=== PATIENT | male | born 1990 | race African-American/Black ===

== ENCOUNTER 2017-10-14 14:59 | Inpatient (IN) | payer OTHER ==
[2017-10-14] MEDS ORDERED: chlorproMAZINE INJ* 25 MG/ML 2 ML (50 MG) ONE ×2 (15:28→15:40)
[2017-10-14] MEDS ORDERED: chlorproMAZINE INJ* 25 MG/ML 2 ML (50 MG) IM ONE ×2 (15:45→16:31)
[2017-10-14 17:15] LABS: ABS Basophils 0 10^3/ul (0-0.2); ABS Eosinophils 0 10^3/ul (0-0.6); ABS Lymphocytes 2.1 10^3/ul (1.0-4.8); ABS Monocytes 0.5 10^3/ul (0-0.8); ABS Neutrophils 3.1 10^3/ul (1.5-7.7); ABS Nucleated RBC 0 10^3/ul; Eosinophil % 0.7 % (0-6); Hematocrit 38 % (42-52); Hemoglobin 13.1 g/dl (14.0-18.0); Lymphocyte % 36.7 % (25-47); Mean Corpuscular HGB Conc 34 g/dl (31-36); Mean Corpuscular Hemoglobin 30 pg (27-31); Mean Corpuscular Volume 87 fL (80-94); Mean Platelet Volume 9 um3 (7.4-10.4); Nucleated Red Blood Cells % 0.1; Platelet Count 206 10^3/ul (150-450); Red Blood Count 4.39 10^6/ul (4.0-5.4); Red Cell Distribution Width 15 % (10.5-15); White Blood Count 5.8 10^3/ul (3.5-10.8)
[2017-10-14 17:30] LABS: EGFR Non-African American 71.3 (>60)
[2017-10-15] MEDS ORDERED: Ibuprofen TAB* 800 MG PO ONE (05:59)
--- NOTE | 2017-10-15 06:57 | ED ---
Jerica Acevedo Abhishek, scribed for Lonnie Holt MD on 10/15/17 at 0656 . Progress - Progress Note Progress Note: The pt was a sign out from Dr. Qureshi, awaiting MHE and pending disposition. - Consult/PCP Time Called: 15:00 Course/Dx - Course Course Of Treatment: Upon recieving MHE, the pt will be admitted to the [facility]. Dx will be mood disorder. - Diagnoses Provider Diagnoses: Mood disorder The documentation as recorded by the Jerica padilla Abhishek accurately reflects the service I personally performed and the decisions made by Yanet joseph Abdul, MD.
[2017-10-15] MEDS ORDERED: Al Hydrox/Mg Hydrox/Simet LIQ* 30 ML UDC PO PRN (10:22)
[2017-10-15] MEDS ORDERED: Acetaminophen TAB* 325 MG PO PRN (10:22)
[2017-10-15] MEDS ORDERED: Haloperidol TAB* 5 MG PO PRN (10:23)
[2017-10-15] MEDS ORDERED: Cyclobenzaprine TAB* 10 MG PO PRN (13:11)
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
[2017-10-16] MEDS: Vitamin THERAPEUTIC TAB PO SCH (08:36)
--- NOTE | 2017-10-16 11:42 | PN ---
Subjective - Subjective Date of Service: 10/16/17 Service Type: 76618 Hosp care 15 min low complexity Subjective: Alberto is smiling broadly with an intense, somewhat frightening affect. He remains paranoid with no insight into why he is hospitalized. "I'm here because I came to a lot of realizations lately." I ask him for an example, to which he responds "That blinking is optional." He minimizes the role of cannabis in his presentation, stating "I found what works for me and for my body." He is suspicious and guarded, laughing to himself. He seems unconcerned by his violent behavior in the ED and similarly nonchalant about the recent warning from [facility] police to stay away from a woman named Malika, who has apparently felt threatened by him. He denies AH or VH. Objective - Appearance Appearance: Well Developed/Nourished Dysmorphic Features: No Hygiene: Normal Grooming: Well Kept - Behavior Psychomotor Activities: Normal Exhibits Abnormal Movement: No - Attitude and Relatedness Attitude and Relatedness: Psychotically Related Eye Contact: Fair - Speech Quality: Unpressured Latencies: Normal Quantity: Appropriate - Mood Patient's Decription of Mood: "Great" - Affect Observed Affect: Expansive Affect Consistent with: Euphoria - Thought Process Patient's Thought Process: Disorganized Thought Content: Yes Paranoid Ideation, No Passive Wish, No Suicidal Planning, No Homicidal Ideation - Sensorium Experiencing Hallucinations: Yes Type of Hallucinations: Auditory: Yes, Command: No - Level of Consciousness Level of Consciousness: Alert Orientation: Yes Intact, Yes Orientated to Time, Yes Orientated to Place, Yes Orientated to Person - Impulse Control Impulse Control: Poor - Insight and Judgement Insight and Judgement: Impaired - Group Participation Particating in Group Activities: No - Medication Management Medication Management Adherence: No Assessment - Assessment Merits Inpatient Hospitalization: For Immediate Safety, For Stabilization Inpatient DSM-V Dx: F29 Clinical Impression: 27 y.o. 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 Plan - Plan Treatment Plan: Name: ALBERTO BRIONES Birthdate: 1990 [id number] The patient remains psychotic with no insight into his impairment. He is unsafe for discharge. We will start a trial of risperidone 1mg PO qhs. Continue to treat in a structured and secured inpatient setting. Continued Medication Management: Start Medication Medications: Current Medications Acetaminophen (Tylenol Tab*) 650 mg PO Q4H PRN PRN Reason: PAIN or TEMP > 101 F Al Hydrox/Mg Hydrox/Simethicone (Maalox Plus*) 30 ml PO Q4H PRN PRN Reason: INDIGESTION Cyclobenzaprine HCl (Flexeril Tab*) 10 mg PO BID PRN PRN Reason: PAIN Diphenhydramine HCl (Benadryl Po*) 50 mg PO Q6H PRN PRN Reason: AGITATION/INSOMNIA Haloperidol (Haldol Tab*) 5 mg PO Q6H PRN PRN Reason: PSYCHOSIS/AGITATION Multivitamins (Theragran Tab*) 1 tab PO DAILY [facility] Last Admin: 10/16/17 08:36 Dose: Not Given Risperidone (Risperdal-M Tab *) 1 mg PO BEDTIME [facility] PRN Reason: Protocol - Discharge Plan Discharge Plan: Inpatient Hospitalization
--- NOTE | 2017-10-16 16:46 | PN ---
[facility]: Group Therapy Note - Service Type Service Type: [id number] Group Psychotherapy - Medication Education Group: Patient attended group and presented with flat affect that did not vary with discussion. Although responsive to direct prompts to respond to questions, patient did not engage in spontaneous conversation.
[2017-10-16] MEDS: risperiDONE-M * 1 MG TAB.ORADIS PO SCH (22:12)
[2017-10-17] MEDS: Vitamin THERAPEUTIC TAB PO SCH (08:19)
--- NOTE | 2017-10-17 12:25 | PN ---
Subjective - Subjective Date of Service: 10/17/17 Service Type: [id number] Hosp care 15 min low complexity Subjective: Alberto continues to display fairly overt symptoms of psychosis. He is looking up at the ceiling, as though seeing something, and smiling broadly to himself and laughing. He remains this way through our interview, laughing inappropriately and making odd statements. "Oh, did you hear that? I heard your shoulder crack." I understand that his mother has come from [facility] and feels he is very much not at his psychiatric baseline, which is asymptomatic. I called his faculty advisor, Dr. Shin Carrillo, and left a message for collateral. The patient makes paranoid statements when asked about his complaints to his sister about being the subject of surveillance prior to admission, saying cryptically "Hey, if they catch me, they catch me." He denies SI or HI. Objective - Appearance Appearance: Well Developed/Nourished Dysmorphic Features: No Hygiene: Normal Grooming: Well Kept - Behavior Psychomotor Activities: Normal Exhibits Abnormal Movement: No - Attitude and Relatedness Attitude and Relatedness: Psychotically Related Eye Contact: Fair - Speech Quality: Pressured Latencies: Short Quantity: Appropriate - Mood Patient's Decription of Mood: "Great" - Affect Observed Affect: Expansive Affect Consistent with: Euphoria - Thought Process Patient's Thought Process: Circumstantial Thought Content: Yes Paranoid Ideation, No Passive Wish, No Suicidal Planning, No Homicidal Ideation - Sensorium Experiencing Hallucinations: Yes Type of Hallucinations: Visual: Yes, Auditory: Yes, Command: No - Level of Consciousness Level of Consciousness: Alert Orientation: Yes Intact, Yes Orientated to Time, Yes Orientated to Place, Yes Orientated to Person - Impulse Control Impulse Control: Poor - Insight and Judgement Insight and Judgement: Impaired - Group Participation Particating in Group Activities: No - Medication Management Medication Management Adherence: No Assessment - Assessment Merits Inpatient Hospitalization: For Immediate Safety, For Stabilization Inpatient DSM-V Dx: F29 Clinical Impression: 27 y.o. 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 Plan - Plan Treatment Plan: Name: ALBERTO BRIONES Birthdate: 1990 [id number] The patient remains psychotic with no insight into his impairment. He is unsafe for discharge. We will start a trial of risperidone 1mg PO qhs. Continue to treat in a structured and secured inpatient setting. Continued Medication Management: Start Medication Medications: Current Medications Acetaminophen (Tylenol Tab*) 650 mg PO Q4H PRN PRN Reason: PAIN or TEMP > 101 F Al Hydrox/Mg Hydrox/Simethicone (Maalox Plus*) 30 ml PO Q4H PRN PRN Reason: INDIGESTION Cyclobenzaprine HCl (Flexeril Tab*) 10 mg PO BID PRN PRN Reason: PAIN Diphenhydramine HCl (Benadryl Po*) 50 mg PO Q6H PRN PRN Reason: AGITATION/INSOMNIA Haloperidol (Haldol Tab*) 5 mg PO Q6H PRN PRN Reason: PSYCHOSIS/AGITATION Multivitamins (Theragran Tab*) 1 tab PO DAILY [facility] Last Admin: 10/17/17 08:19 Dose: Not Given Risperidone (Risperdal-M Tab *) 1 mg PO BEDTIME [facility] PRN Reason: Protocol Last Admin: 10/16/17 22:12 Dose: Not Given - Discharge Plan Discharge Plan: Inpatient Hospitalization
[2017-10-18] MEDS: Vitamin THERAPEUTIC TAB PO SCH (09:02)
[2017-10-18] MEDS: risperiDONE-M * 1 MG TAB.ORADIS PO SCH ×2 (21:08)
[2017-10-19] MEDS: Vitamin THERAPEUTIC TAB PO SCH (08:43)
[2017-10-19] MEDS: risperiDONE-M * 1 MG TAB.ORADIS PO SCH (21:51)
--- NOTE | 2017-10-19 22:40 | PN ---
Subjective - Subjective Date of Service: 10/19/17 Service Type: 08227 Hosp care 15 min low complexity Subjective: Alberto continues to refuse meds and remains disorganized in his thoughts and behaviors. Extremely guarded, aloof, mumbling to self pacing fast and making comments to others. Doesnot believe he need meds and wants to go out to smoking Pot GINO. He thinks Pot is the only thing helps with his body pain and stiffness. Objective - Appearance Appearance: Well Developed/Nourished, Healthy Appearing Dysmorphic Features: No Hygiene: Normal Grooming: Fairly Well Kept - Behavior Psychomotor Activities: Normal Exhibits Abnormal Movement: No - Attitude and Relatedness Attitude and Relatedness: Dismissive Eye Contact: Good - Speech Quality: Unpressured Latencies: Normal Quantity: Appropriate - Mood Patient's Decription of Mood: "Good" - Affect Observed Affect: Tense Affect Consistent with: Dysphoria - Thought Process Patient's Thought Process: Coherent, Disorganized, Tangential Thought Content: No Passive Wish, No Suicidal Planning, No Homicidal Ideation, No Paranoid Ideation - Sensorium Experiencing Hallucinations: No, Sensorium is Clear Type of Hallucinations: Visual: No, Auditory: No, Command: No - Level of Consciousness Level of Consciousness: Alert Orientation: Yes Intact, Yes Orientated to Time, Yes Orientated to Place, Yes Orientated to Person - Impulse Control Impulse Control: Tenuous - Insight and Judgement Insight and Judgement: Impaired - Group Participation Particating in Group Activities: No - Medication Management Medication Management Adherence: No Assessment - Assessment Merits Inpatient Hospitalization: For Immediate Safety, To Initiate Treatment Inpatient DSM-V Dx: F29 Plan - Plan Treatment Plan: Name: ALBERTO BRIONES Birthdate: 1990 [id number] Continued Medication Management: Consider Medication Medications: Current Medications Acetaminophen (Tylenol Tab*) 650 mg PO Q4H PRN PRN Reason: PAIN or TEMP > 101 F Al Hydrox/Mg Hydrox/Simethicone (Maalox Plus*) 30 ml PO Q4H PRN PRN Reason: INDIGESTION Cyclobenzaprine HCl (Flexeril Tab*) 10 mg PO BID PRN PRN Reason: PAIN Diphenhydramine HCl (Benadryl Po*) 50 mg PO Q6H PRN PRN Reason: AGITATION/INSOMNIA Haloperidol (Haldol Tab*) 5 mg PO Q6H PRN PRN Reason: PSYCHOSIS/AGITATION Multivitamins (Theragran Tab*) 1 tab PO DAILY [facility] Last Admin: 10/19/17 08:43 Dose: Not Given Risperidone (Risperdal-M Tab *) 1 mg PO BEDTIME [facility] PRN Reason: Protocol Last Admin: 10/19/17 21:51 Dose: Not Given - Discharge Plan Discharge Plan: Outpatient Follow Up Outpatient Program: [facility]
[2017-10-20] MEDS: Vitamin THERAPEUTIC TAB PO SCH (10:19)
--- NOTE | 2017-10-20 12:23 | PN ---
Subjective - Subjective Date of Service: 10/20/17 Service Type: [id number] Family Medical Psyc Subjective: Alberto is seen for a family meeting attended by his mother, Aleah Cody, and unit SW Ila Robertson. Aleah comments that he seemed somewhat better over the weekend, but not back to baseline. Unfortunately Alberto is minimally cooperative with the process, often shouting over his mother and not allowing her to finish her sentences. She tries to talk about his sensitivities as a child, particularly with the absence of his father, who abandoned the family. "No, we're not here to talk about that. I'm a grown-ass man! This isn't family therapy. 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 I'm smarter than this. I want to get the fuck out of here." The patient storms out of the room. He is pressured with a continued intense, incongruent smile. He continues to decline antipsychotic medication. After the meeting he is observed screaming and punching morales in the milieu. Objective - Appearance Appearance: Well Developed/Nourished Dysmorphic Features: No Hygiene: Normal Grooming: Fairly Well Kept - Behavior Psychomotor Activities: Abnormal-Increased Exhibits Abnormal Movement: No - Attitude and Relatedness Attitude and Relatedness: Psychotically Related Eye Contact: Poor - Speech Quality: Pressured Latencies: Short Quantity: Copious - Mood Patient's Decription of Mood: "Great" - Affect Observed Affect: Labile Affect Consistent with: Euphoria - Thought Process Patient's Thought Process: Tangential Thought Content: Yes Paranoid Ideation, No Passive Wish, No Suicidal Planning, No Homicidal Ideation - Sensorium Experiencing Hallucinations: No, Sensorium is Clear Type of Hallucinations: Visual: No, Auditory: No, Command: No - Level of Consciousness Level of Consciousness: Agitated Orientation: Yes Intact, Yes Orientated to Time, Yes Orientated to Place, Yes Orientated to Person - Impulse Control Impulse Control: Poor - Insight and Judgement Insight and Judgement: Impaired - Group Participation Particating in Group Activities: No - Medication Management Medication Management Adherence: No Assessment - Assessment Merits Inpatient Hospitalization: For Immediate Safety, For Stabilization Inpatient DSM-V Dx: F29 Clinical Impression: 27 y.o. 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 Plan - Plan Treatment Plan: Name: ALBERTO BRIONES Birthdate: 1990 [id number] The patient remains psychotic with no insight into his impairment. He is unsafe for discharge. We will start a trial of risperidone 1mg PO qhs. Continue to treat in a structured and secured inpatient setting. Continued Medication Management: Start Medication Medications: Current Medications Acetaminophen (Tylenol Tab*) 650 mg PO Q4H PRN PRN Reason: PAIN or TEMP > 101 F Al Hydrox/Mg Hydrox/Simethicone (Maalox Plus*) 30 ml PO Q4H PRN PRN Reason: INDIGESTION Cyclobenzaprine HCl (Flexeril Tab*) 10 mg PO BID PRN PRN Reason: PAIN Diphenhydramine HCl (Benadryl Po*) 50 mg PO Q6H PRN PRN Reason: AGITATION/INSOMNIA Haloperidol (Haldol Tab*) 5 mg PO Q6H PRN PRN Reason: PSYCHOSIS/AGITATION Multivitamins (Theragran Tab*) 1 tab PO DAILY [facility] Last Admin: 10/20/17 10:19 Dose: 1 tab Risperidone (Risperdal-M Tab *) 1 mg PO BEDTIME [facility] PRN Reason: Protocol Last Admin: 10/19/17 21:51 Dose: Not Given - Discharge Plan Discharge Plan: Inpatient Hospitalization
[2017-10-20] MEDS: risperiDONE-M * 1 MG TAB.ORADIS PO SCH (23:12)
[2017-10-21] MEDS: Vitamin THERAPEUTIC TAB PO SCH ×2 (09:17→09:18)
--- NOTE | 2017-10-21 11:56 | PN ---
Subjective - Subjective Service Type: 78763 Hosp care 15 min low complexity Subjective: Patient seen by play writer due to Dr Nova's planned absence. Patient continues to assert his desire to be discharged from the hospital. He states "this place isn 't for me" and is concerned about not having a place to hang his towel in the shower. He states he cannot eat the food here and declines offer to meet with a freight conductor. He expresses concern that staff are observing him and wants to "give a good impression" in order to pursue being released. Objective - Appearance Appearance: Well Developed/Nourished Dysmorphic Features: No Hygiene: Normal Grooming: Well Kept - Behavior Psychomotor Activities: Normal Exhibits Abnormal Movement: No - Attitude and Relatedness Attitude and Relatedness: Psychotically Related Eye Contact: Good - intense - Speech Quality: Unpressured Latencies: Normal Quantity: Appropriate - Mood Patient's Decription of Mood: "i want to leave" - Affect Observed Affect: Expansive Affect Consistent with: Euphoria - Thought Process Patient's Thought Process: Disorganized, Tangential, Circumstantial Thought Content: Yes Paranoid Ideation, No Passive Wish, No Suicidal Planning, No Homicidal Ideation - Sensorium Experiencing Hallucinations: No, Sensorium is Clear Type of Hallucinations: Visual: No, Auditory: No, Command: No - Level of Consciousness Level of Consciousness: Alert Orientation: Yes Intact, Yes Orientated to Time, Yes Orientated to Place, Yes Orientated to Person - Impulse Control Impulse Control: Poor - Insight and Judgement Insight and Judgement: Poor - Group Participation Particating in Group Activities: No - Medication Management Medication Management Adherence: Yes Assessment - Assessment Merits Inpatient Hospitalization: For Immediate Safety, For Stabilization, Consolidate Improvements, Pending Safe DC Plan Inpatient DSM-V Dx: F29 Clinical Impression: 27 y.o. 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 Plan - Plan Treatment Plan: Name: PREET BRIONES Birthdate: 1990 [id number] The patient remains psychotic with no insight into his impairment. He is unsafe for discharge. He refused risperidone 1mg PO qhs. Continue to treat in a structured and secured inpatient setting. Continued Medication Management: Start Medication Medications: Current Medications Acetaminophen (Tylenol Tab*) 650 mg PO Q4H PRN PRN Reason: PAIN or TEMP > 101 F Al Hydrox/Mg Hydrox/Simethicone (Maalox Plus*) 30 ml PO Q4H PRN PRN Reason: INDIGESTION Cyclobenzaprine HCl (Flexeril Tab*) 10 mg PO BID PRN PRN Reason: PAIN Diphenhydramine HCl (Benadryl Po*) 50 mg PO Q6H PRN PRN Reason: AGITATION/INSOMNIA Haloperidol (Haldol Tab*) 5 mg PO Q6H PRN PRN Reason: PSYCHOSIS/AGITATION Multivitamins (Theragran Tab*) 1 tab PO DAILY [facility] Last Admin: 10/21/17 09:18 Dose: 1 tab Risperidone (Risperdal-M Tab *) 1 mg PO BEDTIME JENN[facility]ER PRN Reason: Protocol Last Admin: 10/20/17 23:12 Dose: Not Given - Discharge Plan Discharge Plan: Outpatient Follow Up Outpatient Program: Counseling/Psych Services at [employer]
[2017-10-21] MEDS: risperiDONE-M * 1 MG TAB.ORADIS PO SCH (21:00)
[2017-10-22] MEDS: Vitamin THERAPEUTIC TAB PO SCH (09:17)
--- NOTE | 2017-10-22 12:21 | PN ---
Subjective - Subjective Date of Service: 10/22/17 Service Type: 56810 Hosp care 15 min low complexity Subjective: Alberto is seen with PA student Nicol for follow up. He is found under his covers and not participating in groups. He is observed as hyperverbal, distractible from one topic to another, laughing to himself at times, grandiose , hyperverbal and with deficits in sleep (only 4 hours per staff). Staff reports that he is disruptive in groups, often speaking over peers when they are attempting to share. A motivational interviewing approach is taken and he speaks about how cannabis helped with his pain. "Before I took it it would take like 10 hours for me to do 2 hours worth of work." He does admit that pot made him uncomfortable at first and that some people, in fact, can become paranoid and psychotic when taking it. He continues to refuse antipsychotic medications. Objective - Appearance Appearance: Well Developed/Nourished Dysmorphic Features: No Hygiene: Normal Grooming: Fairly Well Kept - Behavior Psychomotor Activities: Abnormal-Increased Exhibits Abnormal Movement: No - Attitude and Relatedness Attitude and Relatedness: Psychotically Related Eye Contact: Fair - Speech Quality: Pressured Latencies: Short Quantity: Copious - Mood Patient's Decription of Mood: "Great" - Affect Observed Affect: Labile Affect Consistent with: Euphoria - Thought Process Patient's Thought Process: Filght of Ideas Thought Content: Yes Paranoid Ideation, No Passive Wish, No Suicidal Planning, No Homicidal Ideation - Sensorium Experiencing Hallucinations: Yes Type of Hallucinations: Visual: No, Auditory: Yes, Command: No - Level of Consciousness Level of Consciousness: Alert Orientation: Yes Intact, Yes Orientated to Time, Yes Orientated to Place, Yes Orientated to Person - Impulse Control Impulse Control: Poor - Insight and Judgement Insight and Judgement: Impaired - Group Participation Particating in Group Activities: No - Medication Management Medication Management Adherence: No Assessment - Assessment Merits Inpatient Hospitalization: For Immediate Safety, For Stabilization Inpatient DSM-V Dx: F29 Clinical Impression: 27 y.o. 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 Plan - Plan Treatment Plan: Name: ALBERTO BRIONES Birthdate: 1990 [id number] The patient remains psychotic with no insight into his impairment. There seem to be symptoms of lea, meaning that his psychosis may be affective in nature, as opposed to substance induced. He remains unsafe for discharge. He is refusing to start a trial of risperidone 1mg PO qhs. I will discuss the possibility of T.O.O. with the Treatment Team tomorrow. Continue to treat in a structured and secured inpatient setting. Continued Medication Management: Start Medication Medications: Current Medications Acetaminophen (Tylenol Tab*) 650 mg PO Q4H PRN PRN Reason: PAIN or TEMP > 101 F Al Hydrox/Mg Hydrox/Simethicone (Maalox Plus*) 30 ml PO Q4H PRN PRN Reason: INDIGESTION Cyclobenzaprine HCl (Flexeril Tab*) 10 mg PO BID PRN PRN Reason: PAIN Diphenhydramine HCl (Benadryl Po*) 50 mg PO Q6H PRN PRN Reason: AGITATION/INSOMNIA Haloperidol (Haldol Tab*) 5 mg PO Q6H PRN PRN Reason: PSYCHOSIS/AGITATION Multivitamins (Theragran Tab*) 1 tab PO DAILY JENNIFER Last Admin: 10/22/17 09:17 Dose: 1 tab Risperidone (Risperdal-M Tab *) 1 mg PO BEDTIME JENNIFER PRN Reason: Protocol Last Admin: 10/21/17 21:00 Dose: Not Given - Discharge Plan Discharge Plan: Inpatient Hospitalization
[2017-10-22] MEDS: risperiDONE-M * 1 MG TAB.ORADIS PO SCH (21:14)
[2017-10-23] MEDS: Vitamin THERAPEUTIC TAB PO SCH (09:12)
--- NOTE | 2017-10-23 14:03 | PN ---
Subjective - Subjective Date of Service: 10/23/17 Service Type: 27338 Hosp care 15 min low complexity Subjective: Alberto is eager to speak with me, looking around the room in a paranoid fashion. "Yo. I found a hair on my plate. And I found one on my bed. Someone else's hair." This seems to have some persecutory significance to him, although he's unable/unwilling to articulate what it means to him. He remains pressured, hyperverbal with intense and expansive as well as irritable affect. He has no insight into his circumstances and denies that he has a mental illness. "When I'm out of here I really want to travel. See the world." He continues to refuse antipsychotic therapy. Objective - Appearance Appearance: Well Developed/Nourished Dysmorphic Features: No Hygiene: Normal Grooming: Fairly Well Kept - Behavior Psychomotor Activities: Abnormal-Increased Exhibits Abnormal Movement: No - Attitude and Relatedness Attitude and Relatedness: Psychotically Related Eye Contact: Fair - Speech Quality: Pressured Latencies: Short Quantity: Copious - Mood Patient's Decription of Mood: "Great" - Affect Observed Affect: Labile Affect Consistent with: Euphoria - Thought Process Patient's Thought Process: Tangential Thought Content: Yes Paranoid Ideation, No Passive Wish, No Suicidal Planning, No Homicidal Ideation - Sensorium Experiencing Hallucinations: No, Sensorium is Clear Type of Hallucinations: Visual: No, Auditory: No, Command: No - Level of Consciousness Level of Consciousness: Alert Orientation: Yes Intact, Yes Orientated to Time, Yes Orientated to Place, Yes Orientated to Person - Impulse Control Impulse Control: Poor - Insight and Judgement Insight and Judgement: Impaired - Group Participation Particating in Group Activities: No - Medication Management Medication Management Adherence: No Assessment - Assessment Merits Inpatient Hospitalization: For Immediate Safety, For Stabilization Inpatient DSM-V Dx: F29 Clinical Impression: 27 y.o. 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 Plan - Plan Treatment Plan: Name: ALBERTO BRIONES Birthdate: 1990 [id number] The patient remains psychotic with no insight into his impairment. There seem to be symptoms of lea, meaning that his psychosis may be affective in nature, as opposed to substance induced. He remains unsafe for discharge. He is refusing to start a trial of risperidone 1mg PO qhs. I will pursue T.O.O. proceedings. Continue to treat in a structured and secured inpatient setting. Continued Medication Management: Start Medication Medications: Current Medications Acetaminophen (Tylenol Tab*) 650 mg PO Q4H PRN PRN Reason: PAIN or TEMP > 101 F Al Hydrox/Mg Hydrox/Simethicone (Maalox Plus*) 30 ml PO Q4H PRN PRN Reason: INDIGESTION Cyclobenzaprine HCl (Flexeril Tab*) 10 mg PO BID PRN PRN Reason: PAIN Diphenhydramine HCl (Benadryl Po*) 50 mg PO Q6H PRN PRN Reason: AGITATION/INSOMNIA Haloperidol (Haldol Tab*) 5 mg PO Q6H PRN PRN Reason: PSYCHOSIS/AGITATION Multivitamins (Theragran Tab*) 1 tab PO DAILY JENNIFER Last Admin: 10/23/17 09:12 Dose: 1 tab Risperidone (Risperdal-M Tab *) 1 mg PO BEDTIME JENNIFER PRN Reason: Protocol Last Admin: 10/22/17 21:14 Dose: Not Given - Discharge Plan Discharge Plan: Inpatient Hospitalization
--- NOTE | 2017-10-23 19:38 | ED ---
Modesto Acevedo Stephanie, scribed for Josh Qureshi MD on 10/14/17 at 1530 . Psychiatric Complaint - HPI Summary HPI Summary: The pt is a 27 y/o M presenting to the ED with c/o paranoia since 14:00 today. The pts sister found him awake but paranoid and confused. Per sister, the pt started using marijuana in July. She reports he recently changed his phD from one faculty to another. - History Of Current Complaint Chief Complaint: EDAltMentalStatus Time Seen by Provider: 10/14/17 15:26 Hx Obtained From: Patient Onset/Duration: Gradual Onset, Still Present Timing: Constant Character: Fearful Aggravating Factor(s): Recent Stress Alleviating Factor(s): Nothing Associated Signs And Symptoms: Positive: Hostile, Confused, Paranoid Behavior - Allergies/Home Medications Allergies/Adverse Reactions: Allergies Allergy/AdvReac Type Severity Reaction Status Date / Time No Known Allergies Allergy Verified 10/15/17 06:51 Home Medications: Home Medications Unobtainable [Unobtainable] 10/14/17 [History Confirmed 10/14/17] PMH/Surg Hx/FS Hx/Imm Hx Sensory History: Denies: Hx Legally Blind EENT History: Denies: Hx Deafness - Surgical History Surgery Procedure, Year, and Place: NONE Infectious Disease History: No Infectious Disease History: Denies: Traveled Outside the [place] in Last 30 Days - Family History Known Family History: Positive: Other - SI ideations - Social History Occupation: Student Lives: Alone Alcohol Use: None Substance Use Type: Reports: Marijuana Substance Use Comment - Amount & Last Used: lg amt of daily marijuana use Smoking Status (MU): Never Smoked Tobacco Review of Systems Negative: Fever Positive: Other - paranoid, confused All Other Systems Reviewed And Are Negative: Yes Physical Exam - Summary Physical Exam Summary: Appearance: Well-appearing, Well-nourished Skin: Warm, Dry, No rash Eyes: Normal, PERRL, EOMI, sclera anicteric ENT: Normal Neck: Supple, nontender Respiratory: Clear to auscultation Cardiovascular: S1, S2, no murmur, no rub, no gallop Abdomen: Soft, nontender, no organomegaly Bowel sounds: Present Musculoskeletal: Normal, Strength/ROM Intact, no edema, pulses symmetrical Neurological: Normal, A&Ox3, cranial nerves II-XII WNL, follows commands, gait not tested, sensation intact to pin and light touch Psychiatric: hostile prior to sedation, currently sedated, arousable, paranoid ideation, speaking to people who are not in the room. Triage Information Reviewed: Yes Vital Signs On Initial Exam: Initial Vitals Temp Pulse Resp BP Pulse Ox 99.1 F 70 18 140/74 100 10/14/17 15:05 10/14/17 15:05 10/14/17 15:05 10/14/17 15:05 10/14/17 15:05 Vital Signs Reviewed: Yes Diagnostics - Vital Signs Vital Signs Temp Pulse Resp BP Pulse Ox 10/14/17 15:05 99.1 F 70 18 140/74 100 - Laboratory Lab Results: Lab Results 10/14/17 10/14/17 Range/Units 17:05 17:05 WBC 5.8 (3.5-10.8) 10^3/ul RBC 4.39 (4.0-5.4) 10^6/ul Hgb 13.1 L (14.0-18.0) g/dl Hct 38 L (42-52) % MCV 87 (80-94) fL MCH 30 (27-31) pg MCHC 34 (31-36) g/dl RDW 15 (10.5-15) % Plt Count 206 (150-450) 10^3/ul MPV 9 (7.4-10.4) um3 Neut % (Auto) 53.4 (38-83) % Lymph % (Auto) 36.7 (25-47) % [place] % (Auto) 8.9 H (0-7) % Eos % (Auto) 0.7 (0-6) % Baso % (Auto) 0.3 (0-2) % Absolute Neuts (auto) 3.1 (1.5-7.7) 10^3/ul Absolute Lymphs (auto) 2.1 (1.0-4.8) 10^3/ul Absolute Monos (auto) 0.5 (0-0.8) 10^3/ul Absolute Eos (auto) 0 (0-0.6) 10^3/ul Absolute Basos (auto) 0 (0-0.2) 10^3/ul Absolute Nucleated RBC 0 10^3/ul Nucleated RBC % 0.1 Sodium 136 (133-145) mmol/L Potassium 3.5 (3.5-5.0) mmol/L Chloride 104 (101-111) mmol/L Carbon Dioxide 26 (22-32) mmol/L Anion Gap 6 (2-11) mmol/L BUN 9 (6-24) mg/dL Creatinine 1.22 H (0.67-1.17) mg/dL Est GFR ( Amer) 91.6 (>60) Est GFR (Non-Af Amer) 71.3 (>60) BUN/Creatinine Ratio 7.4 L (8-20) Glucose 117 H (70-100) mg/dL Calcium 8.9 (8.6-10.3) mg/dL Total Bilirubin 0.50 (0.2-1.0) mg/dL AST 56 H (13-39) U/L ALT 24 (7-52) U/L Alkaline Phosphatase 46 (34-104) U/L Total Protein 6.4 (6.4-8.9) g/dL Albumin 4.1 (3.2-5.2) g/dL Globulin 2.3 (2-4) g/dL Albumin/Globulin Ratio 1.8 (1-3) TSH 0.76 (0.34-5.60) mcIU/mL Serum Alcohol < 10 (<10) mg/dL Result Diagrams: 10/14/17 17:05 10/14/17 17:05 Lab Statement: Any lab studies that have been ordered have been reviewed, and results considered in the medical decision making process. Course/Dx - Course Course Of Treatment: The pt is a sign out to Dr. Holt at shift change pending MHE and drug screen. he remains sedated after receiving 150 mg thorazine, calmer, arousable. awaiting MHE and urine drug screen - Differential Dx/Clinical Impression Differential Diagnosis/HQI/PQRI: Positive: Acute Psychosis - acute psychosis, with paranoid ideation. Provider Diagnosis: Mood disorder, Paranoia Discharge - Discharge Plan Condition: Stable Disposition: OTHER Discharge Disposition Comment: The pt is a sign out to Dr. Holt at shift change. The documentation as recorded by the Modesto padilla Stephanie accurately reflects the service I personally performed and the decisions made by me, Josh Qureshi MD.
[2017-10-23] MEDS: risperiDONE-M * 1 MG TAB.ORADIS PO SCH (22:10)
--- NOTE | 2017-10-24 11:54 | PN ---
[facility]: Group Therapy Note - Service Type Service Type: 24355 Group Psychotherapy - Cognitive Behavioral Group Therapy ( CBT):Patient was attentive and participatory in CBT programming this morning, and remained in good behavioral control. Patient expressed positive insights regarding relevant treatment interventions and goals.
[2017-10-24] MEDS: Vitamin THERAPEUTIC TAB PO SCH (12:13)
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
--- NOTE | 2017-10-24 17:29 | RAD ---
Indication: Altered mental status. Comparison: No relevant prior exams available on the [facility] PACS for comparison. Technique: Noncontrast CT vertex of skull through foramen magnum. Report: The sulci, ventricles, and basal cisterns are normal for age. Wright matter white matter differentiation is preserved without evidence for edema. No intra or extra axial hemorrhage, mass, or fluid collection detected. Unremarkable visualized orbital contents. Unremarkable calvarium and skull base. Unremarkable scalp. Retained secretions with air-fluid levels in the bilateral maxillary sinuses with associated punctate gas bubbles. Clear mastoid air spaces. IMPRESSION: 1. Negative unenhanced CT of the brain. 2. Correlate clinically for potential acute bilateral maxillary sinusitis.
[2017-10-25] MEDS: risperiDONE-M * 1 MG TAB.ORADIS PO SCH ×2 (00:15→21:17)
[2017-10-25] MEDS: Vitamin THERAPEUTIC TAB PO SCH (08:45)
[2017-10-26] MEDS: Vitamin THERAPEUTIC TAB PO SCH ×2 (10:16→10:30)
[2017-10-26] MEDS: risperiDONE-M * 1 MG TAB.ORADIS PO SCH (20:37)
[2017-10-27] MEDS: Vitamin THERAPEUTIC TAB PO SCH (08:19)
--- NOTE | 2017-10-27 13:04 | PN ---
Subjective - Subjective Date of Service: 10/27/17 Service Type: [id number] Family Medical Psyc Subjective: Alberto is seen for family meeting with his mother, Aleah Cody, CHRISTA Robertson and [employer] student Nicol. Alberto is calm and cooperative throughout, although he makes it clear that, in his mind, nothing about his behavior has been abnormal throughout this episode. He declines to indicate whether or not he will resume cannabis usage after hospitalization. Mom indicates that this is Alberto's baseline and she expresses comfort in allowing him to be discharged to outpatient follow up. Alberto expresses a willingness to see a therapist at [facility] after going home. He is uncertain at this time whether he will be pursuing a medical withdrawal from school. Staff notes indicate that Alberto has been calm and under control. He denies SI or HI. Objective - Appearance Appearance: Well Developed/Nourished Dysmorphic Features: No Hygiene: Normal Grooming: Well Kept - Behavior Psychomotor Activities: Normal Exhibits Abnormal Movement: No - Attitude and Relatedness Attitude and Relatedness: Cooperative Eye Contact: Fair - Speech Quality: Unpressured Latencies: Normal Quantity: Appropriate - Mood Patient's Decription of Mood: "Good" - Affect Observed Affect: Expansive Affect Consistent with: Euthymia - Thought Process Patient's Thought Process: Coherent Thought Content: Yes Paranoid Ideation, No Passive Wish, No Suicidal Planning, No Homicidal Ideation - Sensorium Experiencing Hallucinations: No, Sensorium is Clear Type of Hallucinations: Visual: No, Auditory: No, Command: No - Level of Consciousness Level of Consciousness: Alert Orientation: Yes Intact, Yes Orientated to Time, Yes Orientated to Place, Yes Orientated to Person - Impulse Control Impulse Control: Tenuous - Insight and Judgement Insight and Judgement: Fair - Group Participation Particating in Group Activities: Yes - Medication Management Medication Management Adherence: No Assessment - Assessment Merits Inpatient Hospitalization: Consolidate Improvements, Pending Safe DC Plan Inpatient DSM-V Dx: F29 Clinical Impression: 27 y.o. 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 Plan - Plan Treatment Plan: Name: ALBERTO BRIONES Birthdate: 1990 [id number] The patient's paranoia is improving despite his refusal to start a trial of risperidone 1mg PO qhs. His head CT (10/24) was within normal limits. Discontinuation of cannabis appears to have been the most helpful factor in his recovery and we are strongly encouraging him to abstain from that substance. He declines substance abuse treatment. Will target tomorrow, October 28, for discharge to home. Continued Medication Management: Consider Medication Medications: Current Medications Acetaminophen (Tylenol Tab*) 650 mg PO Q4H PRN PRN Reason: PAIN or TEMP > 101 F Al Hydrox/Mg Hydrox/Simethicone (Maalox Plus*) 30 ml PO Q4H PRN PRN Reason: INDIGESTION Cyclobenzaprine HCl (Flexeril Tab*) 10 mg PO BID PRN PRN Reason: PAIN Diphenhydramine HCl (Benadryl Po*) 50 mg PO Q6H PRN PRN Reason: AGITATION/INSOMNIA Haloperidol (Haldol Tab*) 5 mg PO Q6H PRN PRN Reason: PSYCHOSIS/AGITATION Multivitamins (Theragran Tab*) 1 tab PO DAILY [facility] Last Admin: 10/27/17 08:19 Dose: 1 tab Risperidone (Risperdal-M Tab *) 1 mg PO BEDTIME JENNIFER PRN Reason: Protocol Last Admin: 10/26/17 20:37 Dose: Not Given - Discharge Plan Discharge Plan: Outpatient Follow Up Outpatient Program: Counseling/Psych Services at [employer]
[2017-10-27] MEDS: risperiDONE-M * 1 MG TAB.ORADIS PO SCH (22:04)
[2017-10-28 09:12] VITALS: BP 146/81
[2017-10-28] MEDS: Vitamin THERAPEUTIC TAB PO SCH (11:14)
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
== END 2017-10-28 13:15 | disposition home or self-care (01) | DRG 897 ==
LOC: ED 14:59 → BSU 10-15 06:57
PROVIDERS: ADMIT Psychiatry & Neurology Psychiatry; ATTEND Psychiatry & Neurology Psychiatry
PROC: GZHZZZZ Group Psychotherapy (ICD-10-PCS; principal; 2017-10-16)
DX: F12.250 Cannabis dependence with psychotic disorder with delusions (principal); N17.9 Acute kidney failure, unspecified; F22 Delusional disorders; G89.29 Other chronic pain; D64.9 Anemia, unspecified; M54.2 Cervicalgia; R45.1 Restlessness and agitation; M54.9 Dorsalgia, unspecified; Z81.8 Family history of other mental and behavioral disorders; Z78.1 Physical restraint status
CPT/HCPCS: 36415; 70450; 80053; 80320; 84443; 85025; 90847; 90853; 99222; 99231; 99232; 99238; 99284; A9270-GY; G0480

== ENCOUNTER 2017-12-26 15:21 | Inpatient (IN) | payer OTHER ==
[2017-12-26] MEDS ORDERED: Midazolam* 1 MG/ML 2 ML VIAL (2 MG) ONE (15:27)
[2017-12-26] MEDS ORDERED: KETAMINE HCL* 50 MG/ML 10 ML VIAL ONE (15:27)
[2017-12-26] MEDS ORDERED: diPHENhydraMINE IV* 50 MG/ML 1 ml VIAL (BENADRYL) ONE (15:39)
[2017-12-26] MEDS ORDERED: Midazolam* 1 MG/ML 5 ML VIAL (5 MG) SLOW PUSH ONE (15:49)
[2017-12-26] MEDS ORDERED: diPHENhydraMINE IV* 50 MG/ML 1 ml VIAL (BENADRYL) SLOW PUSH ONE (15:49)
[2017-12-26] MEDS ORDERED: Haloperidol INJ IV/IM* 5 MG/ML AMP IV SLOW PU ONE (15:49)
[2017-12-26] MEDS ORDERED: KETAMINE HCL* 50 MG/ML 10 ML VIAL IV ONE (16:03)
[2017-12-26 16:10] LABS: ABS Basophils 0 10^3/ul (0-0.2); ABS Eosinophils 0 10^3/ul (0-0.6); ABS Monocytes 0.6 10^3/ul (0-0.8); ABS Neutrophils 4.9 10^3/ul (1.5-7.7); ABS Nucleated RBC 0 10^3/ul; Eosinophil % 0.4 % (0-6); Hematocrit 40 % (42-52); Hemoglobin 13.9 g/dl (14.0-18.0); Lymphocyte % 26.6 % (25-47); Mean Corpuscular HGB Conc 35 g/dl (31-36); Mean Corpuscular Hemoglobin 30 pg (27-31); Mean Corpuscular Volume 88 fL (80-94); Mean Platelet Volume 8.5 um3 (7.4-10.4); Nucleated Red Blood Cells % 0.1; Platelet Count 205 10^3/ul (150-450); Red Blood Count 4.58 10^6/ul (4.0-5.4); Red Cell Distribution Width 15 % (10.5-15); White Blood Count 7.6 10^3/ul (3.5-10.8)
[2017-12-26 16:37] LABS: EGFR Non-African American 69.3 (>60)
--- NOTE | 2017-12-26 16:38 | RAD ---
INDICATION: Laceration COMPARISON: None TECHNIQUE: AP and lateral views were obtained. FINDINGS: There is no acute fracture. There is soft tissue swelling over the dorsum of the hand. IMPRESSION: NO FRACTURE OR FOREIGN BODY
[2017-12-26] MEDS: Haloperidol TAB* 5 MG PO ONE ×2 (18:18→18:19)
[2017-12-26] MEDS ORDERED: Haloperidol INJ IV/IM* 5 MG/ML AMP IM ONE (18:38)
--- NOTE | 2017-12-26 18:54 | ED ---
Nathan Acevedo Jennifer, scribed for Aric Mota MD on 12/26/17 at 1618 . Psychiatric Complaint - HPI Summary HPI Summary: The patient is a 27 year old male who was brought to the ED 9.45 after a long night of psychotic episodes at home since 2129 last night. Police were at his house at 2300 12/25/2017, but were unable to enter his house to bring him to the ED. The psych epidemiology investigator stayed until 0200 this morning and managed to get the patient to come out of his house. The epidemiology investigator reports the patient had been smoking marijuana, hadnt eaten, punched a window, and experiencing auditory and visual hallucinations as he was fighting an imaginary figure. Patient was additionally very paranoid, thought there were cameras around him, and people were trying to kill him. The patient had been previously hospitalized for 10 days in November. There are abrasions on his right hand after breaking the window. The epidemiology investigator adds that the patient has been refusing to take his Risperdol. - History Of Current Complaint Hx Obtained From: Other: - Psych epidemiology investigator, Police Hx From Patient Unobtainable Due To: Altered Mental Status Onset/Duration: Sudden Onset - Began last night aroung 2129, Lasting Hours, Still Present, Worse Since Timing: Constant Severity Initially: Moderate Severity Currently: Moderate Character: Manic - Psychosis, Fearful Aggravating Factor(s): Drug Use - Marijuana Alleviating Factor(s): Nothing Associated Signs And Symptoms: Positive: Hostile, Hallucinating, Paranoid Behavior, Appetite Change Has Homicidal: Denies: Demonstrates Gesture - Allergies/Home Medications Allergies/Adverse Reactions: Allergies Allergy/AdvReac Type Severity Reaction Status Date / Time No Known Allergies Allergy Verified 10/15/17 06:51 Home Medications: Home Medications NK [No Home Medications Reported] 12/26/17 [History Confirmed 12/26/17] PMH/Surg Hx/FS Hx/Imm Hx Respiratory History: Reports: Hx Asthma - As a child Sensory History: Reports: Hx Contacts or Glasses Denies: Hx Legally Blind, Hx Deafness, Hx Hearing Aid Opthamlomology History: Reports: Hx Contacts or Glasses Denies: Hx Legally Blind Psychiatric History: Reports: Hx Attention Deficit Hyperactivity Disorder, Hx Depression, Hx of Violent Episodes Against Others Denies: Hx Eating Disorder - Surgical History Surgery Procedure, Year, and Place: NONE Infectious Disease History: No Infectious Disease History: Denies: Traveled Outside the [place] in Last 30 Days - Family History Known Family History: Positive: Other - SI ideations - Social History Alcohol Use: None Hx Substance Use: Yes Substance Use Type: Reports: Marijuana Substance Use Comment - Amount & Last Used: lg amt of daily marijuana use Smoking Status (MU): Never Smoked Tobacco Amount Used/How Often: Never used any tobacco Have You Smoked in the Last Year: No Review of Systems Negative: Fever, Chills Negative: Erythema Negative: Sore Throat Negative: Chest Pain Negative: Shortness Of Breath, Cough Negative: Abdominal Pain, Vomiting, Nausea Negative: dysuria, hematuria Negative: Myalgia, Edema Negative: Rash Neurological: Negative - Dizziness Positive: Anxious, Other - SI, paranoid behavior, hallucinations, violent behavior All Other Systems Reviewed And Are Negative: Yes Physical Exam - Summary Physical Exam Summary: Constitutional: Well-developed, Well-nourished, Alert. (-) Distressed Skin: Warm, Dry HENT: Normocephalic; Atraumatic Eyes: Conjunctiva normal Neck: Musculoskeletal ROM normal neck. (-) JVD, (-) Stridor, (-) Tracheal deviation Cardio: Rhythm regular, rate normal, Heart sounds normal; Intact distal pulses; The pedal pulses are 2+ and symmetric. Radial pulses are 2+ and symmetric. (-) Murmur Pulmonary/Chest wall: Effort normal. (-) Respiratory distress, (-) Wheezes, (-) Rales Abd: Soft, (-) Tenderness, (-) Distension, (-) Guarding, (-) Rebound Extremities: 1cm laceration over the proximal phalanx of the right thumb. I explored the area for foreign bodies but did not find any. Also, 3mm laeration of the DIP joint of the index finger. Also no foreign body. Musculoskeletal: (-) Edema Lymph: (-) Cervical adenopathy Neuro: Alert, Oriented x3 Psych: Mood and affect Normal Triage Information Reviewed: Yes Vital Signs On Initial Exam: Initial Vitals Temp Pulse Resp BP Pulse Ox 98 F 69 16 131/92 95 12/26/17 15:50 12/26/17 15:50 12/26/17 15:50 12/26/17 15:50 12/26/17 15:50 Vital Signs Reviewed: Yes Diagnostics - Vital Signs Vital Signs Temp Pulse Resp BP Pulse Ox 12/26/17 15:50 98 F 69 16 131/92 95 - Laboratory Lab Results: Lab Results 12/26/17 Range/Units 16:04 WBC 7.6 (3.5-10.8) 10^3/ul RBC 4.58 (4.0-5.4) 10^6/ul Hgb 13.9 L (14.0-18.0) g/dl Hct 40 L (42-52) % MCV 88 (80-94) fL MCH 30 (27-31) pg MCHC 35 (31-36) g/dl RDW 15 (10.5-15) % Plt Count 205 (150-450) 10^3/ul MPV 8.5 (7.4-10.4) um3 Neut % (Auto) 64.5 (38-83) % Lymph % (Auto) 26.6 (25-47) % [place] % (Auto) 8.0 H (0-7) % Eos % (Auto) 0.4 (0-6) % Baso % (Auto) 0.5 (0-2) % Absolute Neuts (auto) 4.9 (1.5-7.7) 10^3/ul Absolute Lymphs (auto) 2.0 (1.0-4.8) 10^3/ul Absolute Monos (auto) 0.6 (0-0.8) 10^3/ul Absolute Eos (auto) 0 (0-0.6) 10^3/ul Absolute Basos (auto) 0 (0-0.2) 10^3/ul Absolute Nucleated RBC 0 10^3/ul Nucleated RBC % 0.1 Result Diagrams: 12/26/17 16:04 12/26/17 16:04 Lab Statement: Any lab studies that have been ordered have been reviewed, and results considered in the medical decision making process. - Radiology Hand XR Xray Interpretation: No Acute Changes - NO FRACTURE OR FOREIGN BODY. Dr. Mota has reviewed this report. of Radiology Interpretation Completed By: Radiologist Course/Dx - Course Course Of Treatment: The patient is a 27 year old male who was brought to the ED 9.45 after a long night of psychotic episodes at home since 2129 last night. In the ED course the patient was given Benadryl, Haldol, Ketamin, and Versed. Bloodwork and Urinalysis were obtained. Hand XR is negative for foreign bodies. The patient is diagnosed with Finger abrasion and Psychosis. The patient will be signed out to Dr. Maloney pending psych evaluation. - Differential Dx/Clinical Impression Provider Diagnosis: Finger abrasion, Psychosis Discharge - Sign-Out/Discharge Documenting (check all that apply): Sign-Out Patient Signing out patient TO: Freeman Maloney - pending psych evaluation - Discharge Plan Referrals: [facility] [Primary Care Provider] - The documentation as recorded by the Nathan padilla Jennifer accurately reflects the service I personally performed and the decisions made by , Aric Mota MD.
[2017-12-26 22:57] LABS: Urine Appearance Clear; Urine Blood Negative (Negative); Urine Color Yellow; Urine Ketones 2+ (Negative); Urine Protein Negative (Negative); Urine Specific Gravity 1.023 (1.010-1.030); Urine Urobilinogen Negative (Negative)
[2017-12-27] MEDS ORDERED: Acetaminophen TAB* 325 MG PO PRN (01:34)
[2017-12-27] MEDS ORDERED: Al Hydrox/Mg Hydrox/Simet LIQ* 30 ML UDC PO PRN (01:34)
[2017-12-27] MEDS: Vitamin THERAPEUTIC TAB PO SCH (12:05)
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
[2017-12-28] MEDS: Vitamin THERAPEUTIC TAB PO SCH (08:35)
[2017-12-28] MEDS ORDERED: chlorproMAZINE TAB* 50 MG ONE (09:25)
[2017-12-28] MEDS ORDERED: chlorproMAZINE INJ* 25 MG/ML 2 ML (50 MG) ONE (09:26)
[2017-12-28] MEDS ORDERED: chlorproMAZINE TAB* 50 MG PO PRN (09:28)
[2017-12-28] MEDS ORDERED: risperiDONE TAB* 1 MG ONE (14:38)
[2017-12-28] MEDS: risperiDONE TAB* 1 MG PO SCH (15:00)
[2017-12-29] MEDS: risperiDONE TAB* 1 MG PO SCH (09:10)
[2017-12-29] MEDS: Vitamin THERAPEUTIC TAB PO SCH (09:10)
[2017-12-29] MEDS ORDERED: LORazepam TAB(*) 1 MG PO PRN (12:25)
--- NOTE | 2017-12-29 12:31 | PN ---
Subjective - Subjective Date of Service: 12/29/17 Service Type: 59042 Hosp care 25 min moderate complexity Subjective: Alberto is hostile, loud and agitated. He endorses an admission one month ago at [facility] in the [place] and states that he was directly transferred from there to [facility] in [place]. He was discharged on 5mg of daily risperidone and made one follow up appointment at an outpatient clinic in [place] before returning to his apartment in [place]. He is on medical leave from [facility], which, according to him, was just increased from 6 months duration to one full year. He is quite demanding, insisting his mother bring him in special food requests and that he immediately be allowed to use the computer. He is also paranoid, accusing ambulance staff of trying to hang him enroute to the hospital. He is targeting male peers and staff members with posturing and violent threats. He denies the accusations that he has been stalking a female [place] artist and repertoire manager named Malika, insisting that he has made no attempt to contact her. His mother and father are here for visiting hours and are visibly distressed by his behavior. He tells me that he will accept the 5mg risperidone dose if offered. Objective - Appearance Appearance: Well Developed/Nourished Dysmorphic Features: No Hygiene: Normal Grooming: Fairly Well Kept - Behavior Psychomotor Activities: Abnormal-Increased Exhibits Abnormal Movement: No - Attitude and Relatedness Attitude and Relatedness: Hostile Eye Contact: Good - Speech Quality: Pressured Latencies: Short Quantity: Copious - Mood Patient's Decription of Mood: "Terrible" - Affect Observed Affect: Labile Affect Consistent with: Dysphoria - Thought Process Patient's Thought Process: Tangential Thought Content: Yes Homicidal Ideation, Yes Paranoid Ideation, No Passive Wish, No Suicidal Planning - Sensorium Experiencing Hallucinations: Yes Type of Hallucinations: Visual: No, Auditory: Yes, Command: No - Level of Consciousness Level of Consciousness: Agitated Orientation: Yes Intact, Yes Orientated to Time, Yes Orientated to Place, Yes Orientated to Person - Impulse Control Impulse Control: Poor - Insight and Judgement Insight and Judgement: Impaired - Group Participation Particating in Group Activities: No - Medication Management Medication Management Adherence: No Assessment - Assessment Merits Inpatient Hospitalization: For Immediate Safety, For Stabilization Inpatient DSM-V Dx: F31.2 Clinical Impression: 27 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 Plan - Plan Treatment Plan: Name: ALBERTO BRIONES Birthdate: 1990 [id number] We will increase risperidone to 5mg daily. Consider T.O.O. and injectable long acting antipsychotic. Still needs treatment on a locked and secured unit. Continued Medication Management: Start Medication Medications: Current Medications Acetaminophen (Tylenol Tab*) 650 mg PO Q4H PRN PRN Reason: PAIN or TEMP > 101 F Last Admin: 12/27/17 13:50 Dose: 650 mg Al Hydrox/Mg Hydrox/Simethicone (Maalox Plus*) 30 ml PO Q4H PRN PRN Reason: INDIGESTION Chlorpromazine HCl (Thorazine Tab*) 50 mg PO Q6H PRN PRN Reason: AGITATION Multivitamins (Theragran Tab*) 1 tab PO DAILY [facility] Last Admin: 12/29/17 09:10 Dose: 1 tab Risperidone (Risperdal*) 5 mg PO DAILY [facility] - Discharge Plan Discharge Plan: Inpatient Hospitalization Lab Results - Lab Results Lab Results: 12/26/17 12/26/17 22:16 22:16 Urine Color Yellow Urine Appearance Clear Urine pH 5.0 Ur Specific [place] 1.023 Urine Protein Negative Urine Ketones 2+ A Urine Blood Negative Urine Nitrate Negative Urine Bilirubin Negative Urine Urobilinogen Negative Ur Leukocyte Esterase Negative Urine Glucose Negative Urine Opiates Screen None detected Ur Barbiturates Screen None detected Ur Phencyclidine Scrn None detected Ur Amphetamines Screen None detected U Benzodiazepines Scrn Presumptive positive A Urine Cocaine Screen None detected U Cannabinoids Screen Presumptive positive A
[2017-12-30] MEDS: Vitamin THERAPEUTIC TAB PO SCH (08:26)
[2017-12-30] MEDS: risperiDONE TAB* 1 MG PO SCH (08:26)
[2017-12-30] MEDS: chlorproMAZINE TAB* 50 MG PO PRN (08:37)
--- NOTE | 2017-12-30 10:50 | PN ---
Subjective - Subjective Date of Service: 12/30/17 Service Type: 03532 Hosp care 15 min low complexity Subjective: Patient was agitated this morning, picking a fight with a male peer. Only took 1mg of his 5mg scheduled risperidone. Continued to target peer and was given 100mg of prn chlorpromazine and then 30min seclusion in his room. Thereafter he was observed purposefully bumping into the same peer in the hallway, blaming the peer and threatening him again. On exam Alberto tells me that President Lavon and Psychologist Experimental Jose Albarado are personally involved in his involuntary admission here at [facility] because "I notice my Twitter posts beat their' s everyday." He admits to me that he only took oral risperidone at [facility] in order to be discharged from the hospital. For collateral information I called his sister, Crystal Briones, who reported the family called 911 on him in November in the [place], [place] because of his paranoid behavior and he spent approximately 4 days in the ED at [facility] before getting an inpatient psychiatric bed at [facility]'s [place], [place] facility. There he spent approximately 2 weeks and took risperidone 5mg daily under threat that the inpatient unit would pursue treatment over his objection. She notes that he immediately self-discontinued medications after discharge and only made one outpatient follow up appointment at [address] [place] [address]. Thereafter he abruptly left the area to return to [place]. Objective - Appearance Appearance: Well Developed/Nourished Dysmorphic Features: No Hygiene: Normal Grooming: Fairly Well Kept - Behavior Psychomotor Activities: Abnormal-Increased Exhibits Abnormal Movement: No - Attitude and Relatedness Attitude and Relatedness: Psychotically Related Eye Contact: Good - Speech Quality: Pressured Latencies: Short Quantity: Copious - Mood Patient's Decription of Mood: "Great" - Affect Observed Affect: Labile Affect Consistent with: Dysphoria - Thought Process Patient's Thought Process: Tangential Thought Content: Yes Homicidal Ideation, Yes Paranoid Ideation, No Passive Wish, No Suicidal Planning - Sensorium Experiencing Hallucinations: No, Sensorium is Clear Type of Hallucinations: Visual: No, Auditory: No, Command: No - Level of Consciousness Level of Consciousness: Alert Orientation: Yes Intact, Yes Orientated to Time, Yes Orientated to Place, Yes Orientated to Person - Impulse Control Impulse Control: Poor - Insight and Judgement Insight and Judgement: Impaired - Group Participation Particating in Group Activities: No - Medication Management Medication Management Adherence: No Assessment - Assessment Merits Inpatient Hospitalization: For Immediate Safety, For Stabilization Inpatient DSM-V Dx: F31.2 Clinical Impression: 27 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 Plan - Plan Treatment Plan: Name: ALBERTO BRIONES Birthdate: 1990 [id number] We will continue risperidone to 5mg daily and encourage adherence. The patient is refusing SWAIN antipsychotic initiation and we will pursue a court order for T.O.O. for this. Will also pursue State Hospitalization. Still needs treatment on a locked and secured unit. Continued Medication Management: Start Medication Medications: Current Medications Acetaminophen (Tylenol Tab*) 650 mg PO Q4H PRN PRN Reason: PAIN or TEMP > 101 F Last Admin: 12/27/17 13:50 Dose: 650 mg Al Hydrox/Mg Hydrox/Simethicone (Maalox Plus*) 30 ml PO Q4H PRN PRN Reason: INDIGESTION Chlorpromazine HCl (Thorazine Tab*) 100 mg PO Q6H PRN PRN Reason: AGITATION Last Admin: 12/30/17 08:37 Dose: 100 mg Lorazepam (Ativan Tab(*)) 2 mg PO Q6H PRN PRN Reason: ANXIETY Multivitamins (Theragran Tab*) 1 tab PO DAILY [facility] Last Admin: 12/30/17 08:26 Dose: 1 tab Risperidone (Risperdal*) 5 mg PO DAILY [facility] Last Admin: 12/30/17 08:26 Dose: 1 mg - Discharge Plan Discharge Plan: Consider Longer Term Tx
--- NOTE | 2017-12-30 12:03 | PN ---
[facility]: Group Therapy Note - Service Type Service Type: 29153 Group Psychotherapy - Cognitive Behavioral Psychotherapy Group : Alberto was witnessed by staff intentionally bumping his shoulder into a peer and making an aggressive comment. He otherwise remained seated in group after that incident, and remained in good behavioral control. He refrained from making further comments, and seemed to attend well to discussion.
[2017-12-31] MEDS: Vitamin THERAPEUTIC TAB PO SCH (09:58)
[2017-12-31] MEDS: risperiDONE TAB* 1 MG PO SCH (09:59)
[2017-12-31] MEDS ORDERED: risperiDONE TAB* 2 MG ONE (10:45)
[2017-12-31] MEDS ORDERED: risperiDONE TAB* 2 MG PO ONE (11:30)
--- NOTE | 2017-12-31 11:36 | PN ---
Subjective - Subjective Date of Service: 12/31/17 Service Type: 27837 Hosp care 15 min low complexity Subjective: Alberto remains paranoid and mostly seclusive. He only slept one hour last night and staff reports indicate that he was in the quiet room for several hours "dancing wildly." This morning he only accepted 1mg of his scheduled 5mg of daily risperidone, stating "I don't need it. I shouldn't be here." Later, when I meet with him as he paces in the hallway he agrees to take the remaining dose "But only to get out of here." He remains threatening towards peers and accuses them of meaning to harm him. He denies SI. Objective - Appearance Appearance: Well Developed/Nourished Dysmorphic Features: No Hygiene: Normal Grooming: Fairly Well Kept - Behavior Psychomotor Activities: Abnormal-Increased Exhibits Abnormal Movement: No - Attitude and Relatedness Attitude and Relatedness: Psychotically Related Eye Contact: Fair - Speech Quality: Pressured Latencies: Short Quantity: Copious - Mood Patient's Decription of Mood: "Upset" - Affect Observed Affect: Labile Affect Consistent with: Dysphoria - Thought Process Patient's Thought Process: Tangential Thought Content: Yes Homicidal Ideation, Yes Paranoid Ideation, No Passive Wish, No Suicidal Planning - Sensorium Experiencing Hallucinations: No, Sensorium is Clear Type of Hallucinations: Visual: No, Auditory: No, Command: No - Level of Consciousness Level of Consciousness: Agitated Orientation: Yes Intact, Yes Orientated to Time, Yes Orientated to Place, Yes Orientated to Person - Impulse Control Impulse Control: Poor - Insight and Judgement Insight and Judgement: Impaired - Group Participation Particating in Group Activities: No - Medication Management Medication Management Adherence: No Assessment - Assessment Merits Inpatient Hospitalization: For Immediate Safety, For Stabilization Inpatient DSM-V Dx: F31.2 Clinical Impression: 27 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 Plan - Plan Treatment Plan: Name: ALBERTO BRIONES Birthdate: 1990 [id number] We will continue risperidone to 5mg daily and encourage adherence. The patient is refusing SWAIN antipsychotic initiation and we will pursue a court order for T.O.O. for this. Will also pursue State Hospitalization. Still needs treatment on a locked and secured unit. Continued Medication Management: Continue Outpt Medication Medications: Current Medications Acetaminophen (Tylenol Tab*) 650 mg PO Q4H PRN PRN Reason: PAIN or TEMP > 101 F Last Admin: 12/27/17 13:50 Dose: 650 mg Al Hydrox/Mg Hydrox/Simethicone (Maalox Plus*) 30 ml PO Q4H PRN PRN Reason: INDIGESTION Chlorpromazine HCl (Thorazine Tab*) 100 mg PO Q6H PRN PRN Reason: AGITATION Last Admin: 12/30/17 08:37 Dose: 100 mg Lorazepam (Ativan Tab(*)) 2 mg PO Q6H PRN PRN Reason: ANXIETY Multivitamins (Theragran Tab*) 1 tab PO DAILY [facility] Last Admin: 12/31/17 09:58 Dose: 1 tab Risperidone (Risperdal*) 5 mg PO DAILY [facility] Last Admin: 12/31/17 09:59 Dose: 1 mg Risperidone (Risperdal*) 4 mg PO ONCE ONE Stop: 12/31/17 11:31 - Discharge Plan Discharge Plan: Consider Longer Term Tx
[2018-01-01] MEDS: risperiDONE TAB* 3 MG PO SCH (11:27)
[2018-01-01] MEDS: risperiDONE TAB* 2 MG PO SCH (11:27)
[2018-01-01] MEDS: Vitamin THERAPEUTIC TAB PO SCH (11:27)
--- NOTE | 2018-01-01 11:53 | PN ---
Subjective - Subjective Date of Service: 01/01/18 Service Type: 40273 Hosp care 15 min low complexity Subjective: Alberto is once again agitated, stalking the unit and targeting select male peers with threats of violence. He presents as delusional, telling me that the other patients on the unit "are not who they appear to be." "I see it in the way that they talk or the facial expressions they make. It's all about race. I don't want to play this game with you Dr. Nova. I'm not crazy. I don't need to be here." He refused AM meds again this morning and only approaches the med window when accompanied by this clinician, stating "I'll take the medicine, but only to get out of here." When the subject of State Hospitalization is broached, he responds "I won't go. It's just like that. I won't go." Objective - Appearance Appearance: Well Developed/Nourished Dysmorphic Features: No Hygiene: Normal Grooming: Disheveled - Behavior Psychomotor Activities: Normal Exhibits Abnormal Movement: No - Attitude and Relatedness Attitude and Relatedness: Psychotically Related Eye Contact: Fair - Speech Quality: Pressured Latencies: Short Quantity: Copious - Mood Patient's Decription of Mood: "Angry" - Affect Observed Affect: Labile Affect Consistent with: Dysphoria - Thought Process Patient's Thought Process: Tangential Thought Content: Yes Homicidal Ideation, Yes Paranoid Ideation, No Passive Wish, No Suicidal Planning - Sensorium Experiencing Hallucinations: No, Sensorium is Clear Type of Hallucinations: Visual: No, Auditory: No, Command: No - Level of Consciousness Level of Consciousness: Agitated Orientation: Yes Intact, Yes Orientated to Time, Yes Orientated to Place, Yes Orientated to Person - Impulse Control Impulse Control: Poor - Insight and Judgement Insight and Judgement: Impaired - Group Participation Particating in Group Activities: No - Medication Management Medication Management Adherence: Partial Assessment - Assessment Merits Inpatient Hospitalization: For Immediate Safety, For Stabilization Inpatient DSM-V Dx: F31.2 Clinical Impression: 27 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 Plan - Plan Treatment Plan: Name: ALBERTO BRIONES Birthdate: 1990 [id number] We will continue risperidone to 5mg daily and encourage adherence. The patient is refusing SWAIN antipsychotic initiation and we will pursue a court order for T.O.O. for this. Will also pursue State Hospitalization. Still needs treatment on a locked and secured unit. Continued Medication Management: Continue Outpt Medication Medications: Current Medications Acetaminophen (Tylenol Tab*) 650 mg PO Q4H PRN PRN Reason: PAIN or TEMP > 101 F Last Admin: 12/27/17 13:50 Dose: 650 mg Al Hydrox/Mg Hydrox/Simethicone (Maalox Plus*) 30 ml PO Q4H PRN PRN Reason: INDIGESTION Chlorpromazine HCl (Thorazine Tab*) 100 mg PO Q6H PRN PRN Reason: AGITATION Last Admin: 12/30/17 08:37 Dose: 100 mg Lorazepam (Ativan Tab(*)) 2 mg PO Q6H PRN PRN Reason: ANXIETY Multivitamins (Theragran Tab*) 1 tab PO DAILY [facility] Last Admin: 01/01/18 11:27 Dose: 1 tab Risperidone (Risperdal*) 2 mg PO DAILY [facility] Last Admin: 01/01/18 11:27 Dose: 2 mg Risperidone (Risperdal*) 3 mg PO DAILY [facility] Last Admin: 01/01/18 11:27 Dose: 3 mg - Discharge Plan Discharge Plan: Consider Longer Term Tx
[2018-01-01] MEDS: chlorproMAZINE TAB* 50 MG PO PRN (13:16)
[2018-01-01] MEDS ORDERED: diPHENhydraMINE PO* 50 MG ONE (13:59)
[2018-01-01] MEDS ORDERED: Haloperidol TAB* 5 MG ONE (13:59)
[2018-01-01] MEDS ORDERED: LORazepam TAB(*) 1 MG ONE (13:59)
[2018-01-01] MEDS ORDERED: Haloperidol INJ IV/IM* 5 MG/ML AMP ONE (14:07)
[2018-01-01] MEDS ORDERED: diPHENhydraMINE IV* 50 MG/ML 1 ml VIAL (BENADRYL) ONE (14:07)
[2018-01-01] MEDS ORDERED: LORazepam INJ* 2 MG/ML 1 ML VIAL ONE (14:07)
[2018-01-02] MEDS: risperiDONE TAB* 3 MG PO SCH (08:52)
[2018-01-02] MEDS: Vitamin THERAPEUTIC TAB PO SCH (08:52)
[2018-01-02] MEDS: risperiDONE TAB* 2 MG PO SCH (08:52)
--- NOTE | 2018-01-02 12:47 | PN ---
Subjective - Subjective Date of Service: 01/02/18 Service Type: 46523 Hosp care 15 min low complexity Subjective: Alberto received multiple doses of prn antipsychotic yesterday, as he was quite agitated and threatening. Thereafter, he slept throughout the night and continues to sleep this morning. This was the first day he took the full scheduled dose of risperidone without significant redirection from staff. He voices no complaints but remains convinced that he is the victim of a conspiracy to put him in the hospital against his will. Objective - Appearance Appearance: Well Developed/Nourished Dysmorphic Features: No Hygiene: Normal Grooming: Disheveled - Behavior Psychomotor Activities: Normal Exhibits Abnormal Movement: No - Attitude and Relatedness Attitude and Relatedness: Psychotically Related Eye Contact: Poor - Speech Quality: Unpressured Latencies: Long Quantity: Terse - Mood Patient's Decription of Mood: "Fine" - Affect Observed Affect: Tense Affect Consistent with: Dysphoria - Thought Process Patient's Thought Process: Tangential Thought Content: Yes Paranoid Ideation, No Passive Wish, No Suicidal Planning, No Homicidal Ideation - Sensorium Experiencing Hallucinations: No, Sensorium is Clear Type of Hallucinations: Visual: No, Auditory: No, Command: No - Level of Consciousness Level of Consciousness: Alert Orientation: Yes Intact, Yes Orientated to Time, Yes Orientated to Place, Yes Orientated to Person - Impulse Control Impulse Control: Poor - Insight and Judgement Insight and Judgement: Impaired - Group Participation Particating in Group Activities: No - Medication Management Medication Management Adherence: Yes Assessment - Assessment Merits Inpatient Hospitalization: For Immediate Safety, For Stabilization Inpatient DSM-V Dx: F31.2 Clinical Impression: 27 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 Plan - Plan Treatment Plan: Name: ALBERTO BRIONES Birthdate: 1990 [id number] We will continue risperidone to 5mg daily and encourage adherence. The patient is refusing SWAIN antipsychotic initiation and we will pursue a court order for T.O.O. for this. Will also pursue State Hospitalization. Still needs treatment on a locked and secured unit. Continued Medication Management: Continue Outpt Medication Medications: Current Medications Acetaminophen (Tylenol Tab*) 650 mg PO Q4H PRN PRN Reason: PAIN or TEMP > 101 F Last Admin: 12/27/17 13:50 Dose: 650 mg Al Hydrox/Mg Hydrox/Simethicone (Maalox Plus*) 30 ml PO Q4H PRN PRN Reason: INDIGESTION Chlorpromazine HCl (Thorazine Tab*) 100 mg PO Q6H PRN PRN Reason: AGITATION Last Admin: 01/01/18 13:16 Dose: 100 mg Lorazepam (Ativan Tab(*)) 2 mg PO Q6H PRN PRN Reason: ANXIETY Multivitamins (Theragran Tab*) 1 tab PO DAILY [facility] Last Admin: 01/02/18 08:52 Dose: 1 tab Risperidone (Risperdal*) 2 mg PO DAILY [facility] Last Admin: 01/02/18 08:52 Dose: 2 mg Risperidone (Risperdal*) 3 mg PO DAILY [facility] Last Admin: 01/02/18 08:52 Dose: 3 mg - Discharge Plan Discharge Plan: Consider Longer Term Tx
[2018-01-03] MEDS: risperiDONE TAB* 2 MG PO SCH (08:37)
[2018-01-03] MEDS: risperiDONE TAB* 3 MG PO SCH (08:37)
[2018-01-03] MEDS: Vitamin THERAPEUTIC TAB PO SCH (08:37)
[2018-01-04] MEDS: Vitamin THERAPEUTIC TAB PO SCH (09:02)
[2018-01-04] MEDS: risperiDONE TAB* 2 MG PO SCH (09:03)
[2018-01-04] MEDS: risperiDONE TAB* 3 MG PO SCH (09:03)
[2018-01-05] MEDS: risperiDONE TAB* 2 MG PO SCH (08:25)
[2018-01-05] MEDS: risperiDONE TAB* 3 MG PO SCH (08:25)
[2018-01-05] MEDS: Vitamin THERAPEUTIC TAB PO SCH (08:25)
--- NOTE | 2018-01-05 15:32 | PN ---
Subjective - Subjective Date of Service: 01/05/18 Service Type: [id number] Hosp care 15 min low complexity Subjective: Alberto was in the dayroom sitting by himself. Tool a long shower. Reports that he is anxious about tomorrows court and the outcome. Petal very bad yesterday and wanted to give up meaning suicide but has not been thinking about suicide since. Missed lunch today and Nursing will offer him something to eat. Objective - Appearance Appearance: Well Developed/Nourished, Healthy Appearing Dysmorphic Features: No Hygiene: Normal Grooming: Well Kept - Behavior Psychomotor Activities: Normal Exhibits Abnormal Movement: No - Attitude and Relatedness Attitude and Relatedness: Appropriate Eye Contact: Fair - Speech Quality: Unpressured Latencies: Normal Quantity: Appropriate - Mood Patient's Decription of Mood: "Anxious" - Affect Observed Affect: Depressed Affect Consistent with: Dysphoria - Thought Process Patient's Thought Process: Coherent, Goal Directed Thought Content: No Passive Wish, No Suicidal Planning, No Homicidal Ideation, No Paranoid Ideation - Sensorium Experiencing Hallucinations: No, Sensorium is Clear Type of Hallucinations: Visual: No, Auditory: No, Command: No - Level of Consciousness Level of Consciousness: Alert Orientation: Yes Intact, Yes Orientated to Time, Yes Orientated to Place, Yes Orientated to Person - Impulse Control Impulse Control: Tenuous - Insight and Judgement Insight and Judgement: Poor - Group Participation Particating in Group Activities: No - Medication Management Medication Management Adherence: Yes Assessment - Assessment Merits Inpatient Hospitalization: For Immediate Safety, For Stabilization Inpatient DSM-V Dx: F31.2 Clinical Impression: Still symptomatic and patially compliant with meds. Not attending unit groups. Plan - Plan Treatment Plan: Name: ALBERTO BRIONES Birthdate: 1990 [id number] Continued Medication Management: Continue Outpt Medication Medications: Current Medications Acetaminophen (Tylenol Tab*) 650 mg PO Q4H PRN PRN Reason: PAIN or TEMP > 101 F Last Admin: 12/27/17 13:50 Dose: 650 mg Al Hydrox/Mg Hydrox/Simethicone (Maalox Plus*) 30 ml PO Q4H PRN PRN Reason: INDIGESTION Chlorpromazine HCl (Thorazine Tab*) 100 mg PO Q6H PRN PRN Reason: AGITATION Last Admin: 01/01/18 13:16 Dose: 100 mg Lorazepam (Ativan Tab(*)) 2 mg PO Q6H PRN PRN Reason: ANXIETY Multivitamins (Theragran Tab*) 1 tab PO DAILY [facility] Last Admin: 01/05/18 08:25 Dose: 1 tab Risperidone (Risperdal*) 2 mg PO DAILY [facility] Last Admin: 01/05/18 08:25 Dose: 2 mg Risperidone (Risperdal*) 3 mg PO DAILY [facility] Last Admin: 01/05/18 08:25 Dose: 3 mg - Discharge Plan Discharge Plan: Outpatient Follow Up Outpatient Program: [facility]
[2018-01-06] MEDS: Vitamin THERAPEUTIC TAB PO SCH (08:49)
[2018-01-06] MEDS: risperiDONE TAB* 2 MG PO SCH (08:49)
[2018-01-06] MEDS: risperiDONE TAB* 3 MG PO SCH (08:49)
--- NOTE | 2018-01-06 16:25 | PN ---
Subjective - Subjective Date of Service: 01/06/18 Service Type: [id number] Hosp care 25 min moderate complexity Subjective: Alberto is seen three times today. First for routine follow up, then for his scheduled court hearing for treatment over his objection, and lastly, for an administrative hearing to facilitate transfer to the [facility]. Alberto is much less paranoid and agitated. He is able to admit that he was targeting a male peer last week on the unit. He remains uninsightful about his condition, however, and is still refusing indicated SWAIN antipsychotic therapy. He ultimately agrees to drop his objection to transfer to [facility]. Objective - Appearance Appearance: Well Developed/Nourished Dysmorphic Features: No Hygiene: Normal Grooming: Fairly Well Kept - Behavior Psychomotor Activities: Normal Exhibits Abnormal Movement: No - Attitude and Relatedness Attitude and Relatedness: Cooperative Eye Contact: Fair - Speech Quality: Unpressured Latencies: Normal Quantity: Appropriate - Mood Patient's Decription of Mood: "Fine" - Affect Observed Affect: Tense Affect Consistent with: Dysphoria - Thought Process Patient's Thought Process: Circumstantial Thought Content: No Passive Wish, No Suicidal Planning, No Homicidal Ideation, No Paranoid Ideation - Sensorium Experiencing Hallucinations: No, Sensorium is Clear Type of Hallucinations: Visual: No, Auditory: No, Command: No - Level of Consciousness Level of Consciousness: Alert Orientation: Yes Intact, Yes Orientated to Time, Yes Orientated to Place, Yes Orientated to Person - Impulse Control Impulse Control: Poor - Insight and Judgement Insight and Judgement: Impaired - Group Participation Particating in Group Activities: No - Medication Management Medication Management Adherence: Partial Assessment - Assessment Merits Inpatient Hospitalization: For Immediate Safety, For Stabilization Inpatient DSM-V Dx: F31.2 Clinical Impression: 27 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 Plan - Plan Treatment Plan: Name: ALBERTO BRIONES Birthdate: 1990 [id number] As per the judge's clerk's order, we will discontinue risperidone and start a trial of paliperidone Sustenna 234mg IM q4wks (start tomorrow AM). Will pursue State Hospitalization. Still needs treatment on a locked and secured unit. Continued Medication Management: Start Medication Medications: Current Medications Acetaminophen (Tylenol Tab*) 650 mg PO Q4H PRN PRN Reason: PAIN or TEMP > 101 F Last Admin: 12/27/17 13:50 Dose: 650 mg Al Hydrox/Mg Hydrox/Simethicone (Maalox Plus*) 30 ml PO Q4H PRN PRN Reason: INDIGESTION Chlorpromazine HCl (Thorazine Tab*) 100 mg PO Q6H PRN PRN Reason: AGITATION Last Admin: 01/01/18 13:16 Dose: 100 mg Lorazepam (Ativan Tab(*)) 2 mg PO Q6H PRN PRN Reason: ANXIETY Multivitamins (Theragran Tab*) 1 tab PO DAILY [facility] Last Admin: 01/06/18 08:49 Dose: 1 tab - Discharge Plan Discharge Plan: Consider Longer Term Tx
[2018-01-07] MEDS ORDERED: Paliperidone SUSTENNA* 234 MG/1.5 ML IM ONE (09:00)
[2018-01-07] MEDS: Vitamin THERAPEUTIC TAB PO SCH (10:29)
--- NOTE | 2018-01-07 12:03 | PN ---
Subjective - Subjective Date of Service: 01/07/18 Service Type: 39418 Hosp care 15 min low complexity Subjective: Patient calm and cooperative. Willing to take the IM shot and go to [facility]. Insight remains impaired. Still not accepting that he has mental illness. "I think it's physical." He denies SI or HI. Objective - Appearance Appearance: Well Developed/Nourished Dysmorphic Features: No Hygiene: Normal Grooming: Fairly Well Kept - Behavior Psychomotor Activities: Normal Exhibits Abnormal Movement: No - Attitude and Relatedness Attitude and Relatedness: Cooperative Eye Contact: Fair - Speech Quality: Unpressured Latencies: Normal Quantity: Appropriate - Mood Patient's Decription of Mood: "Fine" - Affect Observed Affect: Fair Affect Consistent with: Euthymia - Thought Process Patient's Thought Process: Coherent Thought Content: No Passive Wish, No Suicidal Planning, No Homicidal Ideation, No Paranoid Ideation - Sensorium Experiencing Hallucinations: No, Sensorium is Clear Type of Hallucinations: Visual: No, Auditory: No, Command: No - Level of Consciousness Level of Consciousness: Alert Orientation: Yes Intact, Yes Orientated to Time, Yes Orientated to Place, Yes Orientated to Person - Impulse Control Impulse Control: Poor - Insight and Judgement Insight and Judgement: Impaired - Group Participation Particating in Group Activities: No - Medication Management Medication Management Adherence: Yes Assessment - Assessment Merits Inpatient Hospitalization: For Immediate Safety, For Stabilization Inpatient DSM-V Dx: F31.2 Clinical Impression: 27 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 Plan - Plan Treatment Plan: Name: PREET BRIONES Birthdate: 1990 [id number] As per the lactation nurse's order, we will discontinue risperidone and start a trial of paliperidone Sustenna 234mg IM q4wks (start tomorrow AM). Will pursue State Hospitalization. Still needs treatment on a locked and secured unit. Continued Medication Management: Start Medication Medications: Current Medications Acetaminophen (Tylenol Tab*) 650 mg PO Q4H PRN PRN Reason: PAIN or TEMP > 101 F Last Admin: 12/27/17 13:50 Dose: 650 mg Al Hydrox/Mg Hydrox/Simethicone (Maalox Plus*) 30 ml PO Q4H PRN PRN Reason: INDIGESTION Chlorpromazine HCl (Thorazine Tab*) 100 mg PO Q6H PRN PRN Reason: AGITATION Last Admin: 01/01/18 13:16 Dose: 100 mg Lorazepam (Ativan Tab(*)) 2 mg PO Q6H PRN PRN Reason: ANXIETY Multivitamins (Theragran Tab*) 1 tab PO DAILY [facility] Last Admin: 01/07/18 10:29 Dose: 1 tab - Discharge Plan Discharge Plan: Consider Longer Term Tx Lab Results - Lab Results Lab Results: 01/05/18 01/05/18 06:27 06:27 Hemoglobin A1c 4.9 Triglycerides 88 Cholesterol 183 LDL Cholesterol 106 HDL Cholesterol 59.1
[2018-01-08 07:28] VITALS: BP 132/67
[2018-01-08] MEDS: Vitamin THERAPEUTIC TAB PO SCH (08:42)
--- NOTE | 2018-01-09 08:17 | DS ---
DISCHARGE SUMMARY: DATE OF ADMISSION: 12/26/17 DATE OF DISCHARGE: 01/08/18 DISCHARGE DIAGNOSES: As follows: Gilbert I: Bipolar disorder, type 1, most recent episode manic, severe, with psychotic features; canna bis use disorder. Gilbert II: Deferred. CONDITION AT THE TIME OF DISCHARGE: Guarded. The patient remains paranoid, suspicious with limited insight into his mental illness. He has not totally agreed with outpatient mental health followup de spite being under our care for 2 weeks at this point. We are thinking that he would benefit from a l onger-term more rehabilitative inpatient psychiatric experience, and for this reason, he is [facility] ref [facility]. [facility] Laine Gross. MENTAL STATUS EXAM AT THE TIME OF DISCHARGE: Alberto is a young well-built male with stubbly iros and somewhat limited grooming, wearing a thick winter coat despite the warm weather, who is cu rrently calm, but somewhat guarded. Speech has a normal rate, tone, and volume, and he is fluent in [place]. Mood is euthymic with a slightly flattened affect. Thought process is linear, goal directe d. Thought content is significant for his desire to use the inpatient gym at [facility]. He is denying suicidal or homicidal ideations. He denies auditory or visual hallucination s. However, there is still some evidence of paranoid thinking. Insight and judgment are limited giv en his non-acceptance of his mental health diagnosis and his refusal for after care following dischar . Cognitively, he is awake and alert with what would appear to be a slightly above average intellec t by virtue of his academic history. LABORATORY DATA: Metabolic testing was completed on 01/05/18, at that time hemoglobin A1c was 4.9%, triglycerides 88, cholesterol 183, LDL cholesterol 106, HDL cholesterol 59.1. DISCHARGE INSTRUCTIONS TO THE PATIENT: As follows: A. Medications: The patient is on Invega Sustenna. He is due for his booster dose, which will be 1 56 mg, which will be due on 01/14/18. B. Diet: Regular. C. Activities: As per [facility] protocol. The patient is not a tobacco smoker. There are no laboratory or diagnostic studies pending at the time of discharge. D. Followup care: The patient will be a direct transfer to the [facility] Inpatient Psychiatric Unit in [place], [place]. There, they will establish whatever necessary outpatient appointments are jaya alex at his time of discharge from that facility. E. Substance abuse followup: The patient refused any referrals for substance abuse related to his c annabis use disorder. 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 Apparently, th e patient required extensive restraint and use of force during his apprehension and he continued to b e paranoid, hostile, and agitated in our emergency room. The patient was well known to this observer given the fact that he was under my service between 10/15/17 and 10/28/17. After discharge, he was admitted to the psychiatric hospital [facility] at their facility in [place], [place] for similar presentation. At the end of that hospitalization, he was stabilized on Risperdal 5 m g p.o. daily; however, he chose not to follow through with this after discharge and quickly became ps ychotic and manic again. His mother and sister in the [place] him as he told them that he was re turning to the apartment that he still has a lease on here in [place], [place]. Thereafter, he made attempts to contact a female peer, who he has been warned by [facility] Police not to go near. Arben swain sent police on a wellness check and found him barricaded in his apartment. They were able to con tact the patient's mom, Aleah Vizcaino, who assisted in coaxing him out of the apartment, but he resi sted arrest prior to presentation. On exam, he demonstrated clear signs of affective lea including distractibility, indiscrete violent behavior, grandiosity, flight of ideas, increased activities, po or sleep, and over talkativeness. Part-B: Psychiatric treatment rendered: The patient was admitted to the adult behavioral health [facility] where he was placed on constant observations due to his targeting in violent behavior towards peers ; in particular, he did target a specific male peer, whom he made violent threats towards and had to be by unit staff. Initially, he was un-compliant with medications, however, he did agree e ventually to resumption of oral risperidone at the 5 mg dose that he had taken at [facility]. He started to improve; however, his insight was still limited. We felt that long-acting injecta ble antipsychotic therapy was warranted; however, he refused this. Because of his refusal, we took h im to court for treatment over his objection on the date of 01/06/18. The hospital was succ essful in that endeavor and we subsequently started him on his loading dose of Invega Sustenna 234 mg IM administered on 01/07/18. He is due for booster dose within 1 week. Thereafter, we h ad an administrative hearing in which it was determined that the patient would benefit from state hos pitalization, which he ultimately agreed to. At this time, he is being transferred to [facility] where he will continue to get definitive care and they will be making arrangements for outpatient followup aft er discharge. Alberto is a very intelligent, very gifted scholar, and we are certainly wishing him th e best for safe and healthy future. [id number]/[facility] #: [id number]
== END 2018-01-08 10:00 | DRG 885 ==
LOC: ED 15:21 → BSU 21:10 → ED 22:59
PROVIDERS: ADMIT Psychiatry & Neurology Psychiatry; ATTEND Psychiatry & Neurology Psychiatry
PROC: GZHZZZZ Group Psychotherapy (ICD-10-PCS; principal; 2017-12-26)
DX: F31.2 Bipolar disorder, current episode manic severe with psychotic features (principal); M54.9 Dorsalgia, unspecified; W25.XXXA Contact with sharp glass, initial encounter; J45.909 Unspecified asthma, uncomplicated; F90.9 Attention-deficit hyperactivity disorder, unspecified type; S61.219A Laceration without foreign body of unspecified finger without damage to nail, initial encounter; F12.959 Cannabis use, unspecified with psychotic disorder, unspecified; Y92.009 Unspecified place in unspecified non-institutional (private) residence as the place of occurrence of the external cause; Z81.8 Family history of other mental and behavioral disorders; Y93.89 Activity, other specified
CPT/HCPCS: 36415; 80053; 80061; 80307; 80320; 80329; 81003; 83036; 84443; 85025; 90853; 99222; 99231; 99232; 99238; 99285; A9270-GY; G0480; J1200; J1630; J2060; J2250; J2426

== ENCOUNTER 2020-01-20 13:31 | Inpatient (IN) ==
[2020-01-20 14:31] LABS: ABS Lymphocytes 1.8 10^3/ul (1.0-4.8); ABS Monocytes 0.6 10^3/ul (0-0.8); Eosinophil % 0.3 %; Hematocrit 42 % (42-52); Hemoglobin 14.2 g/dL (14.0-18.0); Lymphocyte % 30.6 %; Mean Corpuscular HGB Conc 34 g/dL (31-36); Mean Corpuscular Hemoglobin 29 pg (27-31); Mean Corpuscular Volume 87 fL (80-94); Mean Platelet Volume 8.4 fL (7.4-10.4); Nucleated Red Blood Cells % 0.2; Platelet Count 245 10^3/uL (150-450); Red Blood Count 4.82 10^6 /uL (4.18-5.48); Red Cell Distribution Width 14 % (10-15); White Blood Count 5.9 10^3/uL (3.5-10.8)
[2020-01-20 14:53] LABS: ALT 19 U/L (7-52); AST 23 U/L (13-39); Albumin 4.3 g/dL (3.2-5.2); Albumin/Globulin Ratio 1.6 (1-3); Alkaline Phosphatase 59 U/L (34-104); Anion Gap 11 mmol/L (2-11); BUN/Creatinine Ratio 12.9 (8-20); Blood Urea Nitrogen 16 mg/dL (6-24); CO2 Carbon Dioxide 21 mmol/L (22-32); Calcium 9.2 mg/dL (8.6-10.3); Chloride 106 mmol/L (101-111); EGFR African American 83.4 (>60); EGFR Non-African American 68.9 (>60); Globulin 2.7 g/dL (2-4); Glucose 82 mg/dL (70-100); Potassium 3.6 mmol/L (3.5-5.0); Sodium 138 mmol/L (135-145)
[2020-01-20 15:14] LABS: Acetaminophen < 15 mcg/mL; Alcohol, S < 10 mg/dL (<10); Salicylate < 2.50 mg/dL (<30)
[2020-01-20 15:28] LABS: TSH (Thyroid Stimulating Horm) 0.76 mcIU/mL (0.34-5.60)
[2020-01-20] MEDS ORDERED: Al Hydrox/Mg Hydrox/Simet LIQ 30 ML UDC PO PRN (17:56)
[2020-01-20] MEDS ORDERED: LORazepam 1 mg TAB (*) PO PRN (17:56)
[2020-01-21] MEDS ORDERED: LORazepam 2 mg VIAL 1 ml ONE (10:15)
[2020-01-21] MEDS ORDERED: diPHENhydraMINE IV 50 MG/ML 1 ml VIAL (BENADRYL) ONE (10:15)
[2020-01-21] MEDS: Vitamin THERAPEUTIC TAB PO SCH (10:30)
[2020-01-21] MEDS ORDERED: LORazepam 2 mg VIAL 1 ml IM ONE (10:45)
[2020-01-21] MEDS ORDERED: diPHENhydraMINE IV 50 MG/ML 1 ml VIAL (BENADRYL) IM ONE (10:45)
[2020-01-21] MEDS ORDERED: Lorazepam PYXIS KEY PRN (10:45)
[2020-01-21] MEDS ORDERED: Paliperidone SUSTENNA 234 MG/1.5 ML IM ONE (12:09)
[2020-01-21] MEDS: OLANzapine 5 mg TAB*ODT PO PRN (16:08)
[2020-01-22] MEDS: Vitamin THERAPEUTIC TAB PO SCH (11:10)
[2020-01-23 08:37] LABS: HDL Cholesterol 46.7 mg/dL
[2020-01-23] MEDS: Vitamin THERAPEUTIC TAB PO SCH (09:29)
[2020-01-23] MEDS ORDERED: diPHENhydraMINE IV 50 MG/ML 1 ml VIAL (BENADRYL) ONE (18:39)
[2020-01-23] MEDS ORDERED: diPHENhydraMINE IV 50 MG/ML 1 ml VIAL (BENADRYL) IM ONE (18:40)
[2020-01-23 21:13] LABS: Hematocrit 40 % (42-52); Hemoglobin 13.7 g/dL (14.0-18.0); Mean Corpuscular HGB Conc 34 g/dL (31-36); Mean Corpuscular Hemoglobin 30 pg (27-31); Mean Corpuscular Volume 87 fL (80-94); Mean Platelet Volume 8.6 fL (7.4-10.4); Platelet Count 228 10^3/uL (150-450); Red Cell Distribution Width 14 % (10-15); White Blood Count 7.5 10^3/uL (3.5-10.8)
[2020-01-23 21:31] LABS: Anion Gap 5 mmol/L (2-11); BUN/Creatinine Ratio 14.9 (8-20); Blood Urea Nitrogen 20 mg/dL (6-24); CO2 Carbon Dioxide 29 mmol/L (22-32); Calcium 9.5 mg/dL (8.6-10.3); Chloride 104 mmol/L (101-111); EGFR African American 76.3 (>60); Glucose 101 mg/dL (70-100); Potassium 4.1 mmol/L (3.5-5.0); Sodium 138 mmol/L (135-145)
[2020-01-23 21:50] LABS: ALT 19 U/L (7-52); AST 29 U/L (13-39); Albumin 4.1 g/dL (3.2-5.2); Alkaline Phosphatase 52 U/L (34-104); Total Protein 6.6 g/dL (6.4-8.9)
[2020-01-23 22:24] LABS: Folate > 20.00 ng/mL (>3.99)
[2020-01-24 01:12] LABS: Urine Benzodiazepine Screen None Detected (None Detect); Urine Buprenorphine Screen None Detected (None Detect); Urine Fentanyl Screen None Detected (None Detect); Urine Hydrocodone Screen None Detected (None Detect); Urine Opiates Screen None Detected (None Detect)
[2020-01-24] MEDS: Vitamin THERAPEUTIC TAB PO SCH (09:07)
[2020-01-24 11:40] LABS: ABS Eosinophils 0.1 10^3/ul (0-0.6); ABS Lymphocytes 3.3 10^3/ul (1.0-4.8); ABS Monocytes 0.8 10^3/ul (0-0.8); Lymphocyte % 44.5 %
[2020-01-24] MEDS ORDERED: Paliperidone SUSTENNA 234 MG/1.5 ML IM ONE (16:00)
[2020-01-25] MEDS: Vitamin THERAPEUTIC TAB PO SCH (09:50)
[2020-01-25] MEDS: OLANzapine 5 mg TAB*ODT PO PRN (23:20)
[2020-01-26] MEDS: Vitamin THERAPEUTIC TAB PO SCH (10:02)
[2020-01-27] MEDS: Vitamin THERAPEUTIC TAB PO SCH (09:37)
[2020-01-28] MEDS ORDERED: Polyethylene Glycol 3350 17 GM PACKET PO PRN (09:45)
[2020-01-28] MEDS ORDERED: Analgesic BALM 114 GM TOPICAL PRN (09:47)
[2020-01-28] MEDS: Vitamin THERAPEUTIC TAB PO SCH (12:58)
[2020-01-29] MEDS: Vitamin THERAPEUTIC TAB PO SCH (11:39)
[2020-01-30] MEDS: Vitamin THERAPEUTIC TAB PO SCH (09:34)
[2020-01-31] MEDS: Vitamin THERAPEUTIC TAB PO SCH (11:32)
[2020-02-01] MEDS: Vitamin THERAPEUTIC TAB PO SCH (08:45)
[2020-02-01] MEDS ORDERED: Paliperidone SUSTENNA 234 MG/1.5 ML IM ONE (10:30)
[2020-02-02] MEDS: Vitamin THERAPEUTIC TAB PO SCH (12:22)
[2020-02-02] MEDS: Polyethylene Glycol 3350 17 GM PACKET PO SCH (15:56)
[2020-02-03] MEDS: Polyethylene Glycol 3350 17 GM PACKET PO SCH (13:10)
[2020-02-03] MEDS: Vitamin THERAPEUTIC TAB PO SCH (13:11)
[2020-02-04] MEDS: Vitamin THERAPEUTIC TAB PO SCH (10:30)
[2020-02-04] MEDS: Polyethylene Glycol 3350 17 GM PACKET PO SCH (10:31)
[2020-02-04] MEDS ORDERED: Paliperidone SUSTENNA 156 MG/1 ML IM ONE (12:37)
[2020-02-05] MEDS: Vitamin THERAPEUTIC TAB PO SCH (11:17)
[2020-02-05] MEDS: Polyethylene Glycol 3350 17 GM PACKET PO SCH (11:17)
[2020-02-06] MEDS: Polyethylene Glycol 3350 17 GM PACKET PO SCH (13:11)
[2020-02-06] MEDS: Vitamin THERAPEUTIC TAB PO SCH (13:11)
[2020-02-07] MEDS: Vitamin THERAPEUTIC TAB PO SCH (10:02)
[2020-02-07] MEDS: Polyethylene Glycol 3350 17 GM PACKET PO SCH (10:02)
[2020-02-08] MEDS: Polyethylene Glycol 3350 17 GM PACKET PO SCH (09:01)
[2020-02-08] MEDS: Vitamin THERAPEUTIC TAB PO SCH (09:02)
[2020-02-09] MEDS: Vitamin THERAPEUTIC TAB PO SCH (09:44)
[2020-02-09] MEDS: Polyethylene Glycol 3350 17 GM PACKET PO SCH (09:45)
[2020-02-10] MEDS: Polyethylene Glycol 3350 17 GM PACKET PO SCH (13:32)
[2020-02-10] MEDS: Vitamin THERAPEUTIC TAB PO SCH (13:32)
[2020-02-11] MEDS: Vitamin THERAPEUTIC TAB PO SCH (08:45)
[2020-02-11] MEDS: Polyethylene Glycol 3350 17 GM PACKET PO SCH (08:49)
[2020-02-12] MEDS: Vitamin THERAPEUTIC TAB PO SCH (09:02)
[2020-02-12] MEDS: Polyethylene Glycol 3350 17 GM PACKET PO SCH (09:02)
[2020-02-13] MEDS: Polyethylene Glycol 3350 17 GM PACKET PO SCH (08:46)
[2020-02-13] MEDS: Vitamin THERAPEUTIC TAB PO SCH (08:46)
[2020-02-14] MEDS: Vitamin THERAPEUTIC TAB PO SCH (10:03)
[2020-02-14] MEDS: Polyethylene Glycol 3350 17 GM PACKET PO SCH (10:04)
[2020-02-15] MEDS: Vitamin THERAPEUTIC TAB PO SCH (09:17)
[2020-02-15] MEDS: Polyethylene Glycol 3350 17 GM PACKET PO SCH (09:18)
[2020-02-16] MEDS: Vitamin THERAPEUTIC TAB PO SCH (08:03)
[2020-02-16] MEDS: Polyethylene Glycol 3350 17 GM PACKET PO SCH (08:06)
[2020-02-16 09:18] VITALS: BP 118/76
== END 2020-02-16 15:20 | disposition home or self-care (01) | DRG 885 ==
LOC: ED 13:31 → BSU 21:53
PROVIDERS: ADMIT Psychiatry & Neurology Psychiatry; ATTEND Psychiatry & Neurology Psychiatry

== ENCOUNTER 2020-03-01 15:59 | Inpatient (IN) ==
[2020-03-01] MEDS ORDERED: Al Hydrox/Mg Hydrox/Simet LIQ 30 ML UDC PO PRN (16:44)
[2020-03-01 17:30] LABS: ABS Eosinophils 0.1 10^3/ul (0-0.6); ABS Lymphocytes 2.3 10^3/ul (1.0-4.8); ABS Monocytes 0.5 10^3/ul (0-0.8); ABS Neutrophils 2.9 10^3/ul (1.5-7.7); Eosinophil % 1.1 %; Hematocrit 39 % (42-52); Hemoglobin 13.4 g/dL (14.0-18.0); Lymphocyte % 39.9 %; Mean Corpuscular HGB Conc 34 g/dL (31-36); Mean Corpuscular Hemoglobin 30 pg (27-31); Mean Corpuscular Volume 87 fL (80-94); Mean Platelet Volume 8.2 fL (7.4-10.4); Nucleated Red Blood Cells % 0.1; Platelet Count 232 10^3/uL (150-450); Red Blood Count 4.53 10^6 /uL (4.18-5.48); Red Cell Distribution Width 14 % (10-15); White Blood Count 5.8 10^3/uL (3.5-10.8)
[2020-03-01 17:49] LABS: ALT 19 U/L (7-52); AST 28 U/L (13-39); Albumin/Globulin Ratio 1.6 (1-3); Alkaline Phosphatase 55 U/L (34-104); Anion Gap 4 mmol/L (2-11); Blood Urea Nitrogen 13 mg/dL (6-24); CO2 Carbon Dioxide 25 mmol/L (22-32); Calcium 8.8 mg/dL (8.6-10.3); Chloride 107 mmol/L (101-111); EGFR African American 88.3 (>60); Globulin 2.5 g/dL (2-4); Glucose 112 mg/dL (70-100); Potassium 3.7 mmol/L (3.5-5.0); Sodium 136 mmol/L (135-145); Total Protein 6.5 g/dL (6.4-8.9)
[2020-03-01 18:16] LABS: Acetaminophen < 15 mcg/mL; Alcohol, S < 10 mg/dL (<10); Salicylate < 2.50 mg/dL (<30)
[2020-03-01 18:20] LABS: TSH Ultra Thyroid Stim Horm 0.99 mcIU/mL (0.34-5.60)
[2020-03-01 18:37] LABS: Urine Appearance Cloudy; Urine Bilirubin Negative (Negative); Urine Blood Negative (Negative); Urine Color Amber; Urine Glucose Negative (Negative); Urine Ketones Negative (Negative); Urine Nitrite Negative (Negative); Urine Protein Negative (Negative); Urine Specific Gravity 1.019 (1.010-1.030); Urine Urobilinogen Negative (Negative)
[2020-03-01 19:02] LABS: Urine Benzodiazepine Screen None Detected (None Detect); Urine Cannabinoids Screen None Detected (None Detect); Urine Opiates Screen None Detected (None Detect)
[2020-03-02] MEDS: Vitamin THERAPEUTIC TAB PO SCH (09:55)
[2020-03-03] MEDS: Vitamin THERAPEUTIC TAB PO SCH (12:10)
[2020-03-04] MEDS: Vitamin THERAPEUTIC TAB PO SCH (13:35)
[2020-03-05] MEDS: Vitamin THERAPEUTIC TAB PO SCH (08:51)
[2020-03-06] MEDS: Vitamin THERAPEUTIC TAB PO SCH (08:12)
[2020-03-07] MEDS: Vitamin THERAPEUTIC TAB PO SCH (08:45)
[2020-03-08] MEDS: Vitamin THERAPEUTIC TAB PO SCH (09:21)
[2020-03-09] MEDS: Vitamin THERAPEUTIC TAB PO SCH (08:17)
[2020-03-10] MEDS: Vitamin THERAPEUTIC TAB PO SCH (08:53)
[2020-03-10] MEDS ORDERED: Senna TAB 8.6 mg TAB PO PRN (12:35)
[2020-03-11] MEDS: Vitamin THERAPEUTIC TAB PO SCH (09:32)
[2020-03-12] MEDS: Vitamin THERAPEUTIC TAB PO SCH (07:56)
[2020-03-13] MEDS: Vitamin THERAPEUTIC TAB PO SCH (09:00)
[2020-03-14 08:30] LABS: HDL Cholesterol 46.3 mg/dL
[2020-03-14] MEDS: Vitamin THERAPEUTIC TAB PO SCH (08:38)
[2020-03-15] MEDS: Vitamin THERAPEUTIC TAB PO SCH (08:42)
[2020-03-16] MEDS: Vitamin THERAPEUTIC TAB PO SCH (08:28)
[2020-03-17] MEDS: Vitamin THERAPEUTIC TAB PO SCH (08:49)
[2020-03-18] MEDS: Vitamin THERAPEUTIC TAB PO SCH (11:49)
[2020-03-19] MEDS: Vitamin THERAPEUTIC TAB PO SCH (08:14)
[2020-03-20] MEDS: Vitamin THERAPEUTIC TAB PO SCH (08:32)
[2020-03-21] MEDS: Vitamin THERAPEUTIC TAB PO SCH (08:22)
[2020-03-22] MEDS: Vitamin THERAPEUTIC TAB PO SCH (09:07)
[2020-03-23 08:31] LABS: Lithium 0.5 mmol/L (0.6-1.2)
[2020-03-23] MEDS: Vitamin THERAPEUTIC TAB PO SCH (09:16)
[2020-03-24] MEDS: Vitamin THERAPEUTIC TAB PO SCH (09:20)
[2020-03-24 11:36] LABS: Albumin 4.6 g/dL (3.2-5.2); Calcium 9.9 mg/dL (8.6-10.3); Potassium 4.3 mmol/L (3.5-5.0); Total Bilirubin 0.4 mg/dL (0.2-1.0)
[2020-03-24 11:42] LABS: Albumin/Globulin Ratio 1.6 (1-3); BUN/Creatinine Ratio 14.4 (8-20); EGFR African American 82.1 (>60); EGFR Non-African American 67.8 (>60); Globulin 2.8 g/dL (2-4); Total Protein 7.4 g/dL (6.4-8.9)
[2020-03-25] MEDS: Lithium Carbonate ER 450mg TAB PO SCH (08:40)
[2020-03-25] MEDS: Vitamin THERAPEUTIC TAB PO SCH (08:40)
[2020-03-26] MEDS: Vitamin THERAPEUTIC TAB PO SCH (10:31)
[2020-03-26] MEDS: Lithium Carbonate ER 450mg TAB PO SCH (10:32)
[2020-03-27] MEDS: Lithium Carbonate ER 450mg TAB PO SCH (08:43)
[2020-03-27] MEDS: Vitamin THERAPEUTIC TAB PO SCH (08:43)
[2020-03-27] MEDS ORDERED: PALIPERIDONE PALMITATE 156 MG/1 ML IM ONE (12:00)
[2020-03-28] MEDS: Vitamin THERAPEUTIC TAB PO SCH (08:07)
[2020-03-28] MEDS: Lithium Carbonate ER 450mg TAB PO SCH (08:07)
[2020-03-29] MEDS: Lithium Carbonate ER 450mg TAB PO SCH (10:31)
[2020-03-29] MEDS: Vitamin THERAPEUTIC TAB PO SCH (10:32)
[2020-03-30] MEDS: Lithium Carbonate ER 450mg TAB PO SCH (08:34)
[2020-03-30] MEDS: Vitamin THERAPEUTIC TAB PO SCH (08:34)
[2020-03-31 08:32] VITALS: BP 129/77
[2020-03-31] MEDS: Vitamin THERAPEUTIC TAB PO SCH (08:39)
[2020-03-31] MEDS: Lithium Carbonate ER 450mg TAB PO SCH (08:39)
[2020-03-31] MEDS ORDERED: PALIPERIDONE IM ONE (08:42)
== END 2020-03-31 14:50 | disposition home or self-care (01) | DRG 885 ==
LOC: ED 15:59 → BSU 16:44
PROVIDERS: ADMIT Nurse Practitioner Psychiatric/Mental Health; ATTEND Psychiatry & Neurology Psychiatry

== ENCOUNTER 2021-01-12 17:48 | Inpatient (IN) ==
[2021-01-12 20:36] LABS: Urine Appearance Clear; Urine Bilirubin Negative (Negative); Urine Blood Negative (Negative); Urine Color Yellow; Urine Glucose Negative (Negative); Urine Ketones Negative (Negative); Urine Nitrite Negative (Negative); Urine Protein Negative (Negative); Urine Specific Gravity 1.019 (1.002-1.030); Urine Urobilinogen Negative (Negative)
[2021-01-12 21:07] LABS: Urine Benzodiazepine Screen None Detected (None Detect); Urine Cannabinoids Screen Presumptive Positive (None Detect); Urine Opiates Screen None Detected (None Detect)
[2021-01-12 23:55] LABS: ABS Eosinophils 0.1 10^3/ul (0-0.6); ABS Lymphocytes 3.9 10^3/ul (1.0-4.8); ABS Monocytes 0.6 10^3/ul (0-0.8); ABS Neutrophils 3.5 10^3/ul (1.5-7.7); Eosinophil % 1.5 %; Hematocrit 39 % (42-52); Mean Corpuscular HGB Conc 33 g/dL (31-36); Mean Corpuscular Hemoglobin 29 pg (27-31); Mean Corpuscular Volume 88 fL (80-94); Mean Platelet Volume 9.1 fL (7.4-10.4); Nucleated Red Blood Cells % 0.2; Platelet Count 235 10^3/uL (150-450); Red Blood Count 4.44 10^6 /uL (4.18-5.48); Red Cell Distribution Width 15 % (10-15); White Blood Count 8.2 10^3/uL (3.5-10.8)
[2021-01-13 00:11] LABS: Anion Gap 7 mmol/L (2-11); Blood Urea Nitrogen 12 mg/dL (6-24); CO2 Carbon Dioxide 25 mmol/L (22-32); Chloride 105 mmol/L (101-111); EGFR Non-African American 71.1 (>60); Glucose 91 mg/dL (70-100); Potassium 4.1 mmol/L (3.5-5.0); Sodium 137 mmol/L (135-145)
[2021-01-13 00:12] LABS: ALT 12 U/L (7-52); AST 20 U/L (13-39); Albumin 4.1 g/dL (3.2-5.2); Albumin/Globulin Ratio 1.6 (1-3); Alkaline Phosphatase 58 U/L (35-149); Calcium 9.1 mg/dL (8.6-10.3); Globulin 2.6 g/dL (2-4); Total Protein 6.7 g/dL (6.4-8.9)
[2021-01-13 00:17] LABS: Acetaminophen < 15 mcg/mL; Alcohol, S < 10 mg/dL (<10); Salicylate < 2.50 mg/dL (<30)
[2021-01-13 00:33] LABS: TSH Ultra Thyroid Stim Horm 1.32 mcIU/mL (0.34-5.60)
[2021-01-13] MEDS ORDERED: Al Hydrox/Mg Hydrox/Simet LIQ 30 ML UDC PO PRN (07:53)
[2021-01-13] MEDS ORDERED: chlorproMAZINE TAB* 50 MG Q6H PRN AGITATION PO (07:54)
[2021-01-13] MEDS: Vitamin THERAPEUTIC TAB PO SCH (10:15)
[2021-01-14] MEDS: Vitamin THERAPEUTIC TAB PO SCH (07:41)
[2021-01-15] MEDS: Vitamin THERAPEUTIC TAB PO SCH (09:01)
[2021-01-16] MEDS: Vitamin THERAPEUTIC TAB PO SCH (09:51)
[2021-01-17] MEDS: Vitamin THERAPEUTIC TAB PO SCH (13:45)
[2021-01-18] MEDS: Vitamin THERAPEUTIC TAB PO SCH (08:34)
[2021-01-18 09:02] LABS: HDL Cholesterol 50.6 mg/dL
[2021-01-19] MEDS: Vitamin THERAPEUTIC TAB PO SCH (09:23)
[2021-01-20] MEDS: Vitamin THERAPEUTIC TAB PO SCH (09:39)
[2021-01-21] MEDS: Vitamin THERAPEUTIC TAB PO SCH (09:08)
[2021-01-22] MEDS: Vitamin THERAPEUTIC TAB PO SCH (08:36)
[2021-01-23] MEDS: Vitamin THERAPEUTIC TAB PO SCH (08:16)
[2021-01-23] MEDS ORDERED: Paliperidone SUSTENNA 234 MG/1.5 ML IM ONE (11:15)
[2021-01-24 08:29] VITALS: BP 115/69
[2021-01-24] MEDS: Vitamin THERAPEUTIC TAB PO SCH (08:58)
== END 2021-01-24 13:20 | disposition home or self-care (01) | DRG 885 ==
LOC: ED 17:48 → BSU 01-13 06:30
PROVIDERS: ADMIT Psychiatry & Neurology Addiction Psychiatry; ATTEND Psychiatry & Neurology Psychiatry

== ENCOUNTER 2021-09-01 13:19 | Inpatient (IN) ==
[2021-09-01] MEDS: risperiDONE-M 1 mg Oradis TAB PO SCH (18:44)
[2021-09-01] MEDS ORDERED: risperiDONE-M 1 mg Oradis TAB ONE (19:35)
[2021-09-01] MEDS ORDERED: risperiDONE-M 1 mg Oradis TAB PO ONE (21:00)
[2021-09-02] MEDS: risperiDONE-M 1 mg Oradis TAB PO SCH (08:16)
[2021-09-02] MEDS ORDERED: risperiDONE-M 1 mg Oradis TAB PO PRN (16:00)
[2021-09-03] MEDS: risperiDONE-M 1 mg Oradis TAB PO SCH (08:26)
[2021-09-03] MEDS: OLANzapine 5 mg TAB*ODT PO PRN ×2 (14:26→18:51)
[2021-09-03] MEDS ORDERED: risperiDONE-M 1 mg Oradis TAB PO SCH (20:00)
[2021-09-04] MEDS ORDERED: risperiDONE-M 1 mg Oradis TAB PO SCH (09:00)
[2021-09-04] MEDS: OLANzapine 5 mg TAB*ODT PO PRN (20:15)
[2021-09-05] MEDS ORDERED: Paliperidone SUSTENNA 234 MG/1.5 ML IM ONE (13:29)
[2021-09-12] MEDS ORDERED: CMC:Lithium Carb ER 300 mg TAB(NF) PO SCH (21:00)
[2021-09-12] MEDS: risperiDONE-M 1 mg Oradis TAB PO SCH (22:38)
[2021-09-13] MEDS: risperiDONE-M 1 mg Oradis TAB PO SCH ×2 (10:25→21:44)
[2021-09-14] MEDS: risperiDONE-M 1 mg Oradis TAB PO SCH ×2 (08:17→19:02)
[2021-09-14] MEDS: OLANzapine 5 mg TAB*ODT PO PRN ×2 (08:18→19:03)
[2021-09-15] MEDS: risperiDONE-M 1 mg Oradis TAB PO SCH ×3 (08:26→19:07)
[2021-09-15] MEDS: OLANzapine 5 mg TAB*ODT PO PRN (18:35)
[2021-09-16] MEDS: risperiDONE-M 1 mg Oradis TAB PO SCH ×2 (09:15→19:23)
[2021-09-16] MEDS: OLANzapine 5 mg TAB*ODT PO PRN (19:24)
[2021-09-17] MEDS: OLANzapine 5 mg TAB*ODT PO PRN ×2 (08:24→21:12)
[2021-09-17] MEDS: risperiDONE-M 1 mg Oradis TAB PO SCH ×2 (08:25→21:11)
[2021-09-17] MEDS ORDERED: CMCS: Lithium Carb ER 300 mg TAB(NF) PO SCH (21:00)
[2021-09-18] MEDS: risperiDONE-M 1 mg Oradis TAB PO SCH ×3 (09:06→19:02)
[2021-09-18] MEDS: Lithium Carb ER 300 mg TAB(NF) PO SCH ×3 (09:07→19:01)
[2021-09-18] MEDS: OLANzapine 5 mg TAB*ODT PO PRN ×2 (13:00→18:59)
[2021-09-19] MEDS: Lithium Carb ER 300 mg TAB(NF) PO SCH ×3 (08:57→21:03)
[2021-09-19] MEDS: risperiDONE-M 1 mg Oradis TAB PO SCH ×3 (08:58→21:03)
[2021-09-19] MEDS: OLANzapine 5 mg TAB*ODT PO PRN (19:01)
[2021-09-20] MEDS: risperiDONE-M 1 mg Oradis TAB PO SCH ×2 (08:53→19:29)
[2021-09-20] MEDS: Lithium Carb ER 300 mg TAB(NF) PO SCH ×2 (08:53→19:29)
[2021-09-21] MEDS: Lithium Carb ER 300 mg TAB(NF) PO SCH ×2 (08:51→19:16)
[2021-09-21] MEDS: risperiDONE-M 1 mg Oradis TAB PO SCH ×2 (08:51→19:15)
[2021-09-21] MEDS: OLANzapine 5 mg TAB*ODT PO PRN (19:16)
[2021-09-22] MEDS: risperiDONE-M 1 mg Oradis TAB PO SCH ×2 (08:16→22:02)
[2021-09-22] MEDS: Lithium Carb ER 300 mg TAB(NF) PO SCH ×2 (08:16→22:03)
[2021-09-23] MEDS: risperiDONE-M 1 mg Oradis TAB PO SCH ×2 (09:26→20:47)
[2021-09-23] MEDS: Lithium Carb ER 300 mg TAB(NF) PO SCH ×2 (09:26→20:47)
[2021-09-23] MEDS: OLANzapine 5 mg TAB*ODT PO PRN (20:48)
[2021-09-24 09:27] LABS: Albumin 4.1 g/dL (3.2-5.2); Albumin/Globulin Ratio 1.4 (1-3); Calcium 9.4 mg/dL (8.6-10.3); Globulin 2.9 g/dL (2-4); Potassium 4.1 mmol/L (3.5-5.0); Total Bilirubin 0.4 mg/dL (0.2-1.0); eGFR CKD-EPI 90.1 (>60)
[2021-09-24 09:48] LABS: Lithium 0.46 mmol/L (0.6-1.2)
[2021-09-24] MEDS: risperiDONE-M 1 mg Oradis TAB PO SCH ×2 (10:08→23:27)
[2021-09-24] MEDS: Lithium Carb ER 300 mg TAB(NF) PO SCH ×2 (10:08→23:27)
[2021-09-25] MEDS: risperiDONE-M 1 mg Oradis TAB PO SCH ×2 (09:11→21:20)
[2021-09-25] MEDS: Lithium Carb ER 300 mg TAB(NF) PO SCH ×2 (09:11→21:20)
[2021-09-25] MEDS: OLANzapine 5 mg TAB*ODT PO PRN (21:21)
[2021-09-26] MEDS: Lithium Carb ER 300 mg TAB(NF) PO SCH ×2 (10:09→21:01)
[2021-09-26] MEDS: risperiDONE-M 1 mg Oradis TAB PO SCH ×2 (10:09→21:01)
[2021-09-27] MEDS: Lithium Carb ER 300 mg TAB(NF) PO SCH ×2 (10:13→22:11)
[2021-09-27] MEDS: risperiDONE-M 1 mg Oradis TAB PO SCH ×2 (10:13→22:11)
[2021-09-28] MEDS: Lithium Carb ER 300 mg TAB(NF) PO SCH ×2 (10:25→21:14)
[2021-09-28] MEDS: risperiDONE-M 1 mg Oradis TAB PO SCH ×2 (10:25→21:14)
[2021-09-28] MEDS ORDERED: Paliperidone SUSTENNA 234 MG/1.5 ML IM ONE (12:00)
[2021-09-29] MEDS: Lithium Carb ER 300 mg TAB(NF) PO SCH ×2 (10:59→22:10)
[2021-09-29] MEDS: risperiDONE-M 1 mg Oradis TAB PO SCH ×2 (11:00→22:10)
[2021-09-30] MEDS: Lithium Carb ER 300 mg TAB(NF) PO SCH ×2 (08:08→22:33)
[2021-09-30] MEDS: risperiDONE-M 1 mg Oradis TAB PO SCH ×2 (08:08→22:33)
[2021-09-30] MEDS: OLANzapine 5 mg TAB*ODT PO PRN (12:33)
[2021-10-01] MEDS: Lithium Carb ER 300 mg TAB(NF) PO SCH ×3 (09:57→19:47)
[2021-10-01] MEDS: risperiDONE-M 1 mg Oradis TAB PO SCH ×3 (09:57→19:47)
[2021-10-01] MEDS ORDERED: Paliperidone SUSTENNA 156 MG/1 ML IM ONE (12:00)
[2021-10-01] MEDS: OLANzapine 5 mg TAB*ODT PO PRN (18:53)
[2021-10-02] MEDS: Lithium Carb ER 300 mg TAB(NF) PO SCH (08:28)
[2021-10-02] MEDS: risperiDONE-M 1 mg Oradis TAB PO SCH (08:28)
[2021-10-02 08:36] VITALS: BP 142/122
== END 2021-10-02 13:00 | DRG 885 ==
LOC: BSU 13:19
PROVIDERS: ADMIT Psychiatry & Neurology Psychiatry; ATTEND Psychiatry & Neurology Psychiatry